=== PATIENT | male | born 1980 | race Caucasian/White ===

== ENCOUNTER → 2017-05-13 16:02 | Outpatient (CLI) | payer MEDICAID, SELFPAY ==
[2017-05-13 19:30] LABS: Free T4 (Free Thyroxine) 0.86 ng/dl (0.76-1.46); Thyroid Stimulating Hormone 1.96 uIU/ml (0.358-3.740)
== END ==
PROVIDERS: Visit Provider Nurse Practitioner Family
DX: R63.5 Abnormal weight gain (principal)
CPT/HCPCS: 84439; 84443

== ENCOUNTER → 2017-05-17 11:04 | Outpatient (POV) | payer MEDICAID, SELFPAY | PROVIDERS: PCP Emergency Medicine; Visit Provider Specialist | DX: G40.909 Epilepsy, unspecified, not intractable, without status epilepticus (principal) | CPT/HCPCS: 95816 ==

== ENCOUNTER → 2017-05-26 12:45 | Outpatient (CLI) | payer MEDICAID, SELFPAY ==
--- NOTE | 2017-05-26 12:46 | MR_ITS ---
MR head/brain wo con HISTORY: Seizure, Transient alteration of awareness ORDERING PHYSICIAN: Arabella Elam MD PATIENT AGE: 36 years COMPARISON: None TECHNIQUE: Standard multiplanar multiecho sequences are performed without contrast. FINDINGS: No midline shift, mass effect, intracranial hemorrhage or hydrocephalus. There is mild degree of motion artifact which somewhat decreases fine detail. No evidence of acute infarction. The cerebellopontine angles are asymmetric with increase CSF signal in the left CP angle possibly related to an arachnoid cyst. Motion artifact does somewhat obscure fine detail in this region. Repeat exam with emphasis on the CP angle within section images without and with contrast may confirm this finding.. The hippocampal gyri are unremarkable in the temporal horns are symmetric. The pituitary gland and optic chiasm are unremarkable. No cerebellar ectopia. No sinus air-fluid level or mastoid effusion. IMPRESSION: 1. Asymmetric prominence of the subarachnoid space in the left CP angle possibly related to an arachnoid cyst. Repeat exam with thin sections without and with contrast and without patient motion may confirm this finding 2. Otherwise negative MRI of the brain
--- NOTE | 2017-05-26 12:46 | FL_ITS ---
FL barium swallow modified: 05/26/2017 12:46 PM CLINICAL HISTORY: Evaluate for aspiration, dysphasia ORDERING PHYSICIAN: Arabella Elam MD PATIENT AGE: 36 years COMPARISON: TECHNIQUE: Patient administered varying consistencies of barium contrast, while viewed in lateral position under real-time fluoroscopy with cine recording. FLUOROSCOPY TIME: 2 minutes and 7 seconds The study was performed in conjunction with speech pathologist. Please see that report & recommendations. FINDINGS: Patient was given varying consistencies of barium. This consisted of thin with cup thin with straw, puree, regular, pudding. No aspiration or penetration. There was good bolus formation. No significant delay or residue. IMPRESSION: Unremarkable modified barium swallow Please see speech pathologist report and recommendations.
--- NOTE | 2017-05-26 14:04 | HMH.SLMBS2 ---
Speech & Language Evaluation Speech/Language Mod Barium Swallow Start: 05/26/17 13:55 Freq: once Status: Complete Protocol: Document 05/26/17 13:56 EBONI (Rec: 05/26/17 14:04 EBONI [id number]) [facility] Recommendations Diet Dietary Recommendations Regular Thin Liquids Treatment/Strategies Strategy/Precaution Recommend Small Bites and Sips Alternate Liquids/Solids Mod Barium Swallow Impressions Summary and Impressions Oral Phase Impression No Impairment (WFL) Oral Phase Summary No impairments noted during evaluation. Pharyngeal Phase Impression No Impairment (WFL) Pharyngeal Phase Summary No impairments noted during evaluation. Speech/Language MBS Assessment/Goals/Plan Assessment Date of Evaluation: 05/26/17 Evaluation Type Initial Certification Assessment/Problems Mother reports Иван has difficulty chewing meats, breads, and lettuce. Does Patient Qualify for Service No Qualify/Failure Comment No clinical signs of dysphagia noted during evaluation. Plan Pt/Guardian verbally ack understanding Yes of dx/prognosis/goals G -code Required No Education Instructions provided Alternate between bite and sip . Take small bites and small sips during meals. Mod Barium Swallow Setup Exam Setup Radiologist Natan Soto Level of Consciousness Awake Follows Commands Position (degrees) 90 Mod Barium Swallow-Lat View Textures Lateral View Food Presentation Thin Liquid via Cup Thin Liquid via Straw Pureed Food- Thin Ground Food- Regular Regular Food Pudding Oral Phase Labial Closure No Impairment (WFL) Bolus Formation Pooling L/R No Impairment (WFL) Bolus Formation under Tongue No Impairment (WFL) Bolus Formation Scattered Loss No Impairment (WFL) Mastication Rotary Chew No Impairment (WFL) Mastication Munching No Impairment (WFL) Mastication Lateralization No Impairment (WFL) A/P Lingual Propulsion Spills No Impairment (WFL) Lingual Movement No Impairment (WFL) Residue Clearing No Impairment (WFL) Aspiration? No Pharyngeal Phase Swallow Response Delay No Impairment (WFL) Base of Tongue No Impairment (WFL) Epiglottic Coverage No Impairment (WFL) Laryngeal Elevation N
== END ==
PROVIDERS: PCP Emergency Medicine; Visit Provider Specialist
DX: R13.10 Dysphagia, unspecified (principal); G40.909 Epilepsy, unspecified, not intractable, without status epilepticus; R40.4 Transient alteration of awareness
CPT/HCPCS: 70371; 70551; 92611

== ENCOUNTER → 2017-08-13 10:32 | Outpatient (CLI) | payer MEDICAID, SELFPAY ==
--- NOTE | 2017-08-13 10:36 | CA_ITS ---
PROCEDURE: 2-D M-mode and color Doppler study INDICATIONS FOR THE TEST: Chest pain COPD Heart Murmur Tobacco Smoking Palpitations Fatigue Syncope Edema Hypertension Diabetes Mellitus Rheumatic Fever SOB WRIGHT Obesity Hyperlipidemia+ Family History HD+ Additional History downs syndrome PATIENT INFORMATION HEIGHT: 60 WEIGHT: 129 GENDER: Male B/P: 109/70 2-D/M-MODE INTERPRETATION: 2-D MEASUREMENTS OBSERVED VALUES IN CMS Right Ventricular Dimension (RVDd) 1.3 Interventricular Septum (Thickness)(IVsd) 0.8 Left Ventricular Internal Dimensions(LVIDd) 4.2 Left Ventricular Posterior Wall (Thickness)(LVPWd) 0.8 Aortic Root 2.7 Aortic Cusp Separation 1.4 Left Atrial Dimensions (LAD) 2.0 2D 1. Left atrium is normal size, left ventricle is normal size, there is no concentric left ventricular hypertrophy, visually estimated ejection fraction 55% with no obvious regional wall motion abnormality. 2. The right atrium and right ventricle are normal size and contractility. 3. The aortic, mitral and tricuspid valve are structurally normal. 4. The pulmonic valve is poorly visualized. 5. No significant pericardial effusion noted. DOPPLER INTERROGATION: Doppler interrogation of the aortic, mitral and tricuspid valvular presence of mild mitral and tricuspid regurgitation, diastolic parameters are within normal range. Tricuspid regurgitant jet velocity is insufficient for calculation of the right ventricular systolic pressure. CONCLUSION: 1. Normal left ventricular size, preserved left ventricular systolic function, visually estimated ejection fraction of 55% with no obvious regional wall motion abnormality, diastolic parameters are within normal range. 2. Mild mitral and tricuspid regurgitation 3. No significant pericardial effusion noted.
== END ==
PROVIDERS: PCP Emergency Medicine; Visit Provider Internal Medicine
DX: R01.1 Cardiac murmur, unspecified (principal); R94.31 Abnormal electrocardiogram [ECG] [EKG]; Z82.49 Family history of ischemic heart disease and other diseases of the circulatory system
CPT/HCPCS: 93306

== ENCOUNTER → 2017-10-14 08:11 | Outpatient (REF) | payer MEDICAID, SELFPAY ==
[2017-10-14 17:36] LABS: Basophils # 0.1 K/mm3 (0-0.2); Basophils % 2.1 % (0.1-2.0); Eosinophils # 0.1 K/mm3 (0.0-0.4); Eosinophils % 1.6 % (0.1-12.0); Hematocrit 50.5 % (42.0-52.0); Hemoglobin 15.8 g/dL (14.1-18.0); Lymphocytes # 1.2 K/mm3 (0.7-4.5); Lymphocytes % 31.9 K/mm3 (10-50); Mean Corpuscular HGB Conc 31.3 g/dL (31.8-35.4); Mean Corpuscular Hemoglobin 29.3 pg (27.0-31.2); Mean Corpuscular Volume 93.6 fl (80-94); Mean Platelet Volume 8.7 fl (7.4-10.4); Monocytes # 0.3 K/mm3 (0.1-1.0); Monocytes % 6.8 % (1.7-9.3); Neutrophils # 2.2 K/mm3 (1.8-7.8); Neutrophils % 57.7 % (37.0-80.0); Platelet Count 253 K/mm3 (142-424); Red Cell Distribution Width 14.2 % (11.5-17.5); White Blood Count 3.8 K/mm3 (4.8-10.8)
[2017-10-14 19:32] LABS: Hemoglobin A1C 5.5 % (0.0-7.0)
[2017-10-14 20:27] LABS: Alanine Aminotransferase 32 U/L (12-78); Albumin Level 3.7 gm/dL (3.4-5.0); Albumin/Globulin Ratio 1.1 (1.1-1.8); Alkaline Phosphatase 78 U/L (46-116); Anion Gap 9.2 mEq/L (5-15); Aspartate Amino Transferase 18 U/L (15-37); Bilirubin,Total 0.4 mg/dL (0.2-1.0); Blood Urea Nitrogen 15 mg/dL (7-18); Calcium 8.6 mg/dL (8.5-10.1); Carbon Dioxide 29 mmol/L (21.0-32.0); Chloride 105 mmol/L (98-107); Chol/HDL Ratio 3.9 (1-3.5); Cholesterol 151 mg/dL (140-200); Creatinine,Serum 1.06 mg/dL (0.70-1.30); Estimated Glomerular Filt Rate 79 ml/min (>60); GFR (African American) 96 ML/MIN (>60); Globulin 3.4 gm/dl (1.3-3.2); Glucose 102 mg/dL (74-106); HDL Cholesterol 39 mg/dL (27-67); LDL Cholesterol 85 mg/dL (0-130); Potassium 4.2 mmoL/L (3.5-5.1); Sodium 139 mmol/L (136-145); T4 (Thyroxine) 4.8 ug/dl (4.7-13.3); Total Protein,Serum 7.1 gm/dL (6.4-8.2); Triglycerides 135 mg/dL (30-200); VLDL Cholesterol 27 mg/dL (0-40)
== END ==
LOC: LAB 08:11
PROVIDERS: Visit Provider Nurse Practitioner Family
DX: R53.83 Other fatigue (principal)
CPT/HCPCS: 80053; 80061; 83036; 84436; 84443; 85025

== ENCOUNTER → 2018-03-04 13:40 | Outpatient (CLI) | payer MEDICAID, SELFPAY | PROVIDERS: Visit Provider Nurse Practitioner Family | DX: J02.9 Acute pharyngitis, unspecified (principal) ==

== ENCOUNTER → 2018-07-05 07:57 | Outpatient (CLI) | payer MEDICAID, SELFPAY ==
[2018-07-05 08:23] LABS: Basophils # 0.1 K/mm3 (0-0.2); Basophils % 1.2 % (0.1-2.0); Eosinophils # 0.1 K/mm3 (0.0-0.4); Eosinophils % 1.2 % (0.1-12.0); Hematocrit 48.2 % (42.0-52.0); Hemoglobin 15.7 g/dL (14.1-18.0); Lymphocytes # 1.3 K/mm3 (0.7-4.5); Lymphocytes % 30.4 % (10-50); Mean Corpuscular HGB Conc 32.7 g/dL (31.8-35.4); Mean Corpuscular Hemoglobin 29.2 pg (27.0-31.2); Mean Corpuscular Volume 89.2 fl (80-94); Mean Platelet Volume 7.1 fl (7.4-10.4); Monocytes # 0.2 K/mm3 (0.1-1.0); Monocytes % 5.5 % (1.7-9.3); Neutrophils # 2.5 K/mm3 (1.8-7.8); Neutrophils % 61.7 % (37.0-80.0); Platelet Count 250 K/mm3 (142-424); Red Cell Distribution Width 14.2 % (11.5-17.5); White Blood Count 4.1 K/mm3 (4.8-10.8)
[2018-07-05 10:23] LABS: Alanine Aminotransferase 36 U/L (12-78); Albumin Level 3.9 gm/dL (3.4-5.0); Albumin/Globulin Ratio 1.1 (1.1-1.8); Alkaline Phosphatase 71 U/L (46-116); Anion Gap 14.4 mEq/L (5-15); Aspartate Amino Transferase 22 U/L (15-37); Bilirubin,Total 0.5 mg/dL (0.2-1.0); Blood Urea Nitrogen 18 mg/dL (7-18); Calcium 8.8 mg/dL (8.5-10.1); Carbon Dioxide 27 mmol/L (21.0-32.0); Chloride 105 mmol/L (98-107); Chol/HDL Ratio 3.7 (1-3.5); Cholesterol 156 mg/dL (140-200); Creatinine,Serum 1.07 mg/dL (0.70-1.30); Estimated Glomerular Filt Rate 78 ml/min (>60); GFR (African American) 94 ML/MIN (>60); Globulin 3.6 gm/dl (1.3-3.2); Glucose 90 mg/dL (74-106); HDL Cholesterol 42 mg/dL (27-67); LDL Cholesterol 93 mg/dL (0-130); Potassium 4.4 mmoL/L (3.5-5.1); Sodium 142 mmol/L (136-145); T4 (Thyroxine) 6.5 ug/dl (4.7-13.3); Thyroid Stimulating Hormone 2.86 uIU/ml (0.358-3.740); Total Protein,Serum 7.5 gm/dL (6.4-8.2); Triglycerides 107 mg/dL (30-200); VLDL Cholesterol 21 mg/dL (0-40)
== END ==
PROVIDERS: Visit Provider Nurse Practitioner Family
DX: E78.5 Hyperlipidemia, unspecified (principal); R53.83 Other fatigue
CPT/HCPCS: 36415; 80053; 80061; 84436; 84443; 85025

== ENCOUNTER → 2019-09-14 07:59 | Outpatient (CLI) | payer MEDICAID, SELFPAY ==
[2019-09-14 08:17] LABS: Basophils # 0.1 K/mm3 (0-0.2); Basophils % 1.3 % (0.1-2.0); Eosinophils % 0.7 % (0.1-12.0); Hemoglobin 16.1 g/dL (14.1-18.0); Lymphocytes # 1.1 K/mm3 (0.7-4.5); Lymphocytes % 27.5 % (10-50); Mean Corpuscular HGB Conc 34.3 g/dL (31.8-35.4); Mean Corpuscular Hemoglobin 31.1 pg (27.0-31.2); Mean Corpuscular Volume 90.8 fl (80-94); Mean Platelet Volume 7.6 fl (7.4-10.4); Monocytes # 0.3 K/mm3 (0.1-1.0); Neutrophils # 2.7 K/mm3 (1.8-7.8); Neutrophils % 64.5 % (37.0-80.0); Platelet Count 242 K/mm3 (142-424); Red Blood Count 5.17 M/mm3 (4.60-6.20); Red Cell Distribution Width 14.1 % (11.5-17.5); White Blood Count 4.1 K/mm3 (4.8-10.8)
--- NOTE | 2019-09-14 08:32 | XR_ITS ---
PROCEDURE: XR ANKLE WT BEARING LT MIN 3V CLINICAL INDICATION: pain Pain and swelling COMPARISON: None. FINDINGS: No fracture or dislocation. No lytic or blastic change. There is normal mineralization. Prominent soft tissue swelling at the lateral malleolar region Other findings:None. IMPRESSION: Soft tissue swelling otherwise negative Dictated by: Natan Soto MD 09/14/2019 17:21 Electronically signed by Natan Soto MD in [place] 09/14/2019 17:21
--- NOTE | 2019-09-14 08:32 | XR_ITS ---
PROCEDURE: XR FOOT WT BEARING LT 3V CLINICAL INDICATION: pain COMPARISON: No exams were available for comparison FINDINGS: No fracture or dislocation. No lytic or blastic change. There is normal mineralization. The joint spaces are well-preserved. No significant degenerative/arthritic changes. No erosive changes evident. Other findings:None. IMPRESSION: No acute findings. Dictated by: Natan Soto MD 09/14/2019 17:25 Electronically signed by Natan Soto MD in [place] 09/14/2019 17:25
--- NOTE | 2019-09-14 08:32 | XR_ITS ---
PROCEDURE: XR ANKLE WT BEARING RT MIN 3V CLINICAL INDICATION: pain Pain and swelling COMPARISON: No exams were available for comparison FINDINGS: No fracture or dislocation. No lytic or blastic change. There is normal mineralization. Moderate soft tissue swelling at the lateral malleolar region. Other findings:None. IMPRESSION: Soft tissue swelling otherwise negative Dictated by: Natan Soto MD 09/14/2019 17:24 Electronically signed by Natan Soto MD in [place] 09/14/2019 17:24
--- NOTE | 2019-09-14 08:32 | XR_ITS ---
PROCEDURE: XR FOOT WT BEARING RT 3V CLINICAL INDICATION: pain Pain and swelling COMPARISON: No exams were available for comparison FINDINGS: No fracture or dislocation. No lytic or blastic change. There is normal mineralization. Mild hallux valgus. Mild soft tissue swelling noted at the medial aspect of the 1st MTP joint. Other findings:None. IMPRESSION: Hallux valgus otherwise negative Dictated by: Natan Soto MD 09/14/2019 17:22 Electronically signed by Natan Soto MD in [place] 09/14/2019 17:22
[2019-09-14 09:32] LABS: Alanine Aminotransferase 26 U/L (12-78); Albumin Level 4.4 g/dl (3.5-5.0); Albumin/Globulin Ratio 1.5 (1.1-1.8); Alkaline Phosphatase 70 U/L (38-126); Anion Gap 11.5 mEq/L (5-15); Aspartate Amino Transferase 37 U/L (17-59); Bilirubin,Total 0.6 mg/dl (0.2-1.3); Blood Urea Nitrogen 21 mg/dl (9-20); Calcium 9.2 mg/dl (8.4-10.2); Carbon Dioxide 32 mmol/L (22.0-30.0); Chloride 100 mmol/L (98-107); Chol/HDL Ratio 3.5 (1-3.5); Cholesterol 152 mg/dl (140-200); Estimated Glomerular Filt Rate 84 ml/min (>60); GFR (African American) 101 ML/MIN (>60); Globulin 2.9 g/dL (1.3-3.2); Glucose 97 mg/dl (74-100); HDL Cholesterol 43 mg/dl (40-60); Potassium 4.5 mmoL/L (3.5-5.1); Sodium 139 mmol/L (136-145); Total Protein,Serum 7.3 g/dl (6.3-8.2); Triglycerides 112 mg/dl (30-150); VLDL Cholesterol 22 mg/dL (0-40)
[2019-09-14 09:43] LABS: Direct LDL Cholesterol 86.68 mg/dL (100-129)
[2019-09-14 09:49] LABS: T4 (Thyroxine) 6.6 ug/dl (5.53-11.0)
[2019-09-14 10:03] LABS: Thyroid Stimulating Hormone 3.39 uIU/mL (0.465-4.68)
== END ==
LOC: LAB 07:59 → RAD 08:25
PROVIDERS: PCP Nurse Practitioner Family; Visit Provider Podiatrist
DX: R60.0 Localized edema (principal); M79.89 Other specified soft tissue disorders; M21.42 Flat foot [pes planus] (acquired), left foot; M21.41 Flat foot [pes planus] (acquired), right foot; M25.572 Pain in left ankle and joints of left foot; M25.571 Pain in right ankle and joints of right foot; G89.29 Other chronic pain
CPT/HCPCS: 36415; 73610; 73630; 80053; 80061; 84436; 84443; 85025

== ENCOUNTER 2019-09-18 10:01 | Emergency (ER) | payer MEDICAID, SELFPAY ==
[2019-09-18 10:04] VITALS: BP 105/72; PULSE 111; RESP 16; TEMP 36.7; O2SAT 99; BMI 29.4
--- NOTE | 2019-09-18 10:29 | XR_ITS ---
PROCEDURE: XR RIBS LT MIN 3V W CXR1V CLINICAL INDICATION: LT RIB PAIN COMPARISON: No exams were available for comparison FINDINGS: Lung gerber, cardiac silhouette, soft tissues, in the bony structures are unremarkable. No rib fractures are demonstrated. IMPRESSION: Negative Dictated by: Marquise Maldonado 09/18/2019 10:59 Electronically signed by Marquise Maldonado in [place] 09/18/2019 10:59
[2019-09-18 10:33] LABS: Microscopic, Urine URINE MICROSCOPIC (MICROSCOPIC)
[2019-09-18 10:34] LABS: Appearance,Urine CLEAR (Clear); Bilirubin,Urine Negative (Negative); Blood, Urine Negative (Negative); Color,Urine YELLOW (Yellow); Glucose,Urine (UA) Negative (Negative); Ketones,Urine Negative (Negative); Leukocyte Esterase,Urine Negative (Negative); Nitrate,Urine Negative (Negative); PH,Urine 6.5 (5.0-8.5); Protein,Urine Negative (Negative); Urobilinogen,Urine 0.2 EU/dl (0.2)
[2019-09-18 10:47] LABS: Squamous Epithelial Cell,Urine Occasional #/hpf (0-5); WBC,Urine Occasional #/hpf (0-3)
[2019-09-18 11:30] VITALS: BP 127/74; PULSE 76; RESP 18; TEMP 36.8; O2SAT 99
--- NOTE | 2019-09-18 11:36 | HMH.EDGENADL ---
ED Disposition Clinical Impression: Costochondritis, acute Disposition: Home, Self-Care Condition on Discharge: Good Instructions: DI for Acute Pain -- Adult Prescriptions: Nabumetone 750 mg PO BID 10 Days #20 tab Transmission Status: Pending to [id number] Referrals: Ninfa Escobedo APRN [Primary Care Provider] - - Critical Care Critical Care Time: No Attestation: On 09/18/19, the high probability of a clinically significant, sudden or life threatening deterioration of the following system(s) required my full and direct attention, intervention and personal management. The time I documented below is in addition to time spent performing reported procedures but includes the following listed in this critical care notation. Medical Decision Making - Medical Records Medical records reviewed: Yes: I reviewed the patient's medical records. - Edmar Inquiry Pt receiving controlled substance: No Vital Signs: 09/18/19 10:04 Temperature 98.1 F Temperature Source Oral Pulse Rate [Right Radial] 111 H Respiratory Rate 16 Blood Pressure [Right Arm] 105/72 L Blood Pressure Mean [Right Arm] 83 Blood Pressure Source [Right Arm] Automatic Cuff Blood Pressure Position [Right Arm] Sitting 02 Sat by Pulse Oximetry 99 Oxygen Delivery Method Room Air - Lab Data Lab results reviewed: Yes: I reviewed the patient's lab results. Lab Results 09/18/19 10:15: Urine Color Yellow, Urine Appearance Clear, Urine pH 6.5, Ur Specific [place] 1.020, Urine Protein Negative, Urine Glucose (UA) Negative, Urine Ketones Negative, Urine Blood Negative, Urine Nitrate Negative, Urine Bilirubin Negative, Urine Urobilinogen 0.2, Ur Leukocyte Esterase Negative, Urine RBC 3-5, Urine WBC Occasional, Ur Squamous Epith Cells Occasional, Urine Bacteria None - Radiology Data #1 Image(s): Chest Preliminary Findings: Normal/NAD General Adult HPI - General Chief complaint: PAIN Stated complaint: left rib cage Time Seen by Provider: 09/18/19 11:30 Mode of Arrival: Ambulatory Source of Information: Patient, Parent(s) Limitations: COGNITIVELY DELAYED Description of Symptoms (Recalled from ER Triage Doc. by RN): PT C/O LT RIB/SIDE PAIN. MOM STATES THAT HE HAS A CAMPING CHAIR THAT HE SITS IN IN HIS ROOM TO PLAY VIDEO GAMES SO SHE IS UNSURE IF IT IS RELATED TO LEANING ON THE ARM OF IT OR IF IT IS MORE IN THE FLANK REGION. - History of Present Illness Onset (ago): day(s) Location: chest Radiation: non-radiation Severity: moderate Severity scale (1-10): 4 Quality: aching Consistency: constant Relieving factors: none Exacerbating factors: none Associated symptoms: denies other symptoms Treatments prior to arrival: cold therapy (Rib pain on the right side) - Related Data Previous Rx's Medication Instructions Recorded CLEARLAX POW See Rx Instructions .ROUTE 12/23/18 .COMPLEX #238 unspecified albuterol sulfate 90 mcg/actuation 2 inh INHALATION Q6H #1 each 01/24/19 breath activated powder inhaler levothyroxine 25 mcg tablet 25 mcg PO DAILY #90 tab 08/17/19 cris[place]ole 2 % topical ointment 1 applic TOPICAL BID #60 g 08/31/19 Nabumetone 750 mg PO BID 10 Days #20 tab 09/18/19 Allergies Allergy/AdvReac Type Severity Reaction Status Date / Time NO KNOWN ALLERGIES - NKA Allergy Mild Uncoded 08/31/19 13:00 [facility] History - Hepatitis A Screen Drug use history?: No High risk sexual behaviors?: No History of sexually transmitted infection?: No Currently employed?: No Childcare worker?: No Do you have indoor plumbing?: Yes Do you have electricity?: Yes Attestation statement:: This patient has been screened for Hepatitis A risk factors. Medical History: Reports:: Heart Murmur, Hyperlipidemia, Seizures Denies:: Diabetes Mellitus Type 1, Diabetes Mellitus Type 2 Other Medical History: Reports: Thyroid Disease Comment: Down Syndrome, hearing loss Laterality Cases: Bilateral: Myringotomy (Ear Tubes) Other Surgeries:
== END 2019-09-18 11:30 | disposition home or self-care (01) ==
PROVIDERS: Emergency Provider Family Medicine; PCP Nurse Practitioner Family
DX: M94.0 Chondrocostal junction syndrome [Tietze] (principal); R01.1 Cardiac murmur, unspecified; G40.909 Epilepsy, unspecified, not intractable, without status epilepticus; E78.5 Hyperlipidemia, unspecified; E03.9 Hypothyroidism, unspecified; Z79.899 Other long term (current) drug therapy
CPT/HCPCS: 71101; 81001; 99282

== ENCOUNTER → 2019-09-27 14:09 | Outpatient (CLI) | payer MEDICAID, SELFPAY ==
--- NOTE | 2019-09-27 14:10 | US_ITS ---
PROCEDURE: US EXTREMITY LT LIMITED CLINICAL INDICATION: soft tissue mass evaluation COMPARISON: No exams were available for comparison FINDINGS: There is a heterogeneous area of echogenicity in the left ankle in the subcutaneous region measuring 3 x 0.3 cm. No other significant anomalies evident. IMPRESSION: Ill-defined area of fluid in the lateral left ankle in the subcutaneous tissues Dictated by: Natan Soto MD 09/27/2019 16:31 Electronically signed by Natan Soto MD in [place] 09/27/2019 16:31
--- NOTE | 2019-09-27 14:10 | US_ITS ---
PROCEDURE: US EXTREMITY RT LIMITED CLINICAL INDICATION: soft tissue mass evaluation COMPARISON: No exams were available for comparison FINDINGS: There is a heterogeneous area of slight decreased echogenicity overlying the lateral malleolar region which is nondescript with slight decreased echogenicity. This does not appear to represent a cystic collection. Etiology is indeterminate. This area measures 2.6 by 0.6 cm IMPRESSION: Nonspecific heterogeneous area of decreased echogenicity in the right lateral ankle etiology indeterminate. This does not represent a cystic collection Dictated by: Natan Soto MD 09/27/2019 17:10 Electronically signed by Natan Soto MD in [place] 09/27/2019 17:10
== END ==
PROVIDERS: PCP Nurse Practitioner Family; Visit Provider Podiatrist
DX: M79.89 Other specified soft tissue disorders (principal)
CPT/HCPCS: 76882

== ENCOUNTER → 2020-06-12 08:29 | Outpatient (CLI) | payer MEDICAID, SELFPAY ==
--- NOTE | 2020-06-12 08:29 | MR_ITS ---
PROCEDURE: MR ANKLE LT WO/W CON CLINICAL INDICATION: soft tissue mass Mass on lateral aspect of ankle. Mass has gotten bigger [id number]. COMPARISON: CR XR ANKLE WT BEARING LT MIN 3V from 09/14/2019 TECHNIQUE: Routine multiplanar multi echo sequences are performed without gadolinium enhancement. FINDINGS: 7 x 5 cm soft tissue mass is present along the lateral aspect of the ankle measuring 1.7 cm in thickness. Mass is isointense on T1 and hyperintense on T2. Subcutaneous vessels are traversing through the mass. This mass demonstrates peripheral contrast enhancement. There may be an internal septation within the lesion. This does not surround any tendons. Differential diagnosis would include large ganglion cyst with inflammatory change or abscess. Neoplasm is not excluded. No ligamentous or tendinous abnormalities are apparent. Increased T2 signal involves the shaft of the 1st metatarsal distally and may be due to artifact. There is some edema noted in the sinus tarsi. Edematous changes are also present within the distal soleus muscle which could be due to muscle strain or tear or myositis.. IMPRESSION: 7 x 5 cm soft tissue mass is present along the lateral aspect of the ankle measuring 1.7 cm in thickness. Mass is isointense on T1 and hyperintense on T2. Subcutaneous vessels are traversing through the mass. This mass demonstrates peripheral contrast enhancement. There may be an internal septation within the lesion. This does not surround any tendons. Differential diagnosis would include large ganglion cyst with inflammatory change or abscess. Neoplasm is not excluded. [facility] report was also rendered and available for review. Edema within the distal soleus muscle. Small ankle joint effusion Dictated by: Natan Soto MD 06/18/2020 09:41 Natan Soto MD in [place] 06/18/2020 09:41
== END ==
PROVIDERS: PCP Nurse Practitioner Family; Visit Provider Podiatrist
DX: M25.572 Pain in left ankle and joints of left foot (principal); M79.89 Other specified soft tissue disorders
CPT/HCPCS: 73723; A9576

== ENCOUNTER → 2020-06-14 08:44 | Outpatient (CLI) | payer MEDICAID, SELFPAY ==
--- NOTE | 2020-06-14 08:44 | MR_ITS ---
PROCEDURE: MR ANKLE RT WO/W CON CLINICAL INDICATION: soft tissue mass Pt has bilateral lateral ankle soft tissue masses. Both ankles scanned-left on 06/12 and rt today. The rt ankle mass has been there awhile but has gotten larger over the last month, but not nearly as prominent as the mass on the left ankle. COMPARISON: No exams were available for comparison TECHNIQUE: Routine multiplanar multi echo sequences are performed without gadolinium enhancement. FINDINGS: The ATFL, PT FL, deltoid ligament, and calcaneal fibular ligament appear intact. The posterior tibialis, flexor digitorum longus tendons have an unremarkable appearance. The peroneal tendons, Achilles tendon and anterior extensor tendons have an unremarkable appearance. Small amount fluid surrounds the peroneal tendons. Fluid is present along the posterior talocalcaneal region and posterior to the tibial talar area. Small amount fluid is present anterior to the ankle joint. Small amount fluid is noted within the posterior tibialis tendon sheath. There is enhancement with mild subcutaneous soft tissue swelling adjacent to the lateral malleolus. Small ulceration is present adjacent to the lateral malleolus. Small cystic lesions are present in the distal fibula. Hypointensity is noted in the soft tissue on all sequences in the lateral malleolar region may be due to fibrotic change. In the soft tissues of the medial hindfoot there is a 9 x 8 x 6 mm STIR hyperintense lesion demonstrating some minimal peripheral contrast enhancement and may be due to small complex cyst or necrotic lesion. IMPRESSION: 1. Small ulceration adjacent to the lateral malleolus with associated soft tissue swelling and hypointensity of the soft tissues in this area on all sequences extending anteriorly which may be due to fibrotic changes 2. 9 x 8 x 6 mm STIR hyperintense lesion within the medial hindfoot in the subcutaneous tissues showing some minimal enhancement and could be due to small complex cyst or necrotic lesion or abscess. 3. Small amount of fluid posterior to the ankle joint and talocalcaneal area with some fluid within the soft tissues at this region as well. Dictated by: Natan Soto MD 06/18/2020 09:53 Natan Soto MD in [place] 06/18/2020 09:53
== END ==
PROVIDERS: PCP Nurse Practitioner Family; Visit Provider Podiatrist
DX: M25.571 Pain in right ankle and joints of right foot (principal); M25.572 Pain in left ankle and joints of left foot; M79.89 Other specified soft tissue disorders
CPT/HCPCS: 73723; A9576

== ENCOUNTER → 2020-08-05 07:43 | Outpatient (CLI) | payer MEDICAID, SELFPAY ==
--- NOTE | 2020-08-05 08:03 | ECG_ITS ---
APPROVED REPORT Exam: Resting ECG HR:80 bpm ECG Measurements Heart Rate 80 AXES MD 124 P 44 QRSd 84 QRS 118 QT 358 T 76 QTc 412 Conclusion Normal sinus rhythm Right axis deviation Right ventricular hypertrophy Abnormal ECG Electronically signed by : Carlos Lamas, 08/05/2020 18:13:22
[2020-08-05 08:26] LABS: Basophils # 0.1 K/mm3 (0-0.2); Basophils % 1.5 % (0.1-2.0); Eosinophils % 0.8 % (0.1-12.0); Hematocrit 48.6 % (42.0-52.0); Hemoglobin 15.6 g/dL (14.1-18.0); Lymphocytes # 1.7 K/mm3 (0.7-4.5); Lymphocytes % 31.7 % (10-50); Mean Corpuscular Hemoglobin 28.7 pg (27.0-31.2); Mean Corpuscular Volume 89.5 fl (80-94); Mean Platelet Volume 7.8 fl (7.4-10.4); Monocytes # 0.3 K/mm3 (0.1-1.0); Monocytes % 6.1 % (1.7-9.3); Neutrophils # 3.1 K/mm3 (1.8-7.8); Neutrophils % 59.9 % (37.0-80.0); Platelet Count 274 K/mm3 (142-424); Red Blood Count 5.43 M/mm3 (4.60-6.20); Red Cell Distribution Width 14.3 % (11.5-17.5); White Blood Count 5.2 K/mm3 (4.8-10.8)
[2020-08-05 09:02] LABS: Alanine Aminotransferase 23 U/L (12-78); Albumin Level 4.2 g/dl (3.5-5.0); Albumin/Globulin Ratio 1.4 (1.1-1.8); Alkaline Phosphatase 69 U/L (38-126); Anion Gap 9.3 mEq/L (5-15); Aspartate Amino Transferase 29 U/L (17-59); Bilirubin,Total 0.8 mg/dl (0.2-1.3); Blood Urea Nitrogen 18 mg/dl (9-20); Calcium 9.2 mg/dl (8.4-10.2); Carbon Dioxide 30 mmol/L (22.0-30.0); Chloride 105 mmol/L (98-107); Estimated Glomerular Filt Rate 83 ml/min (>60); GFR (African American) 101 ML/MIN (>60); Globulin 2.9 g/dL (1.3-3.2); Glucose 97 mg/dl (74-100); Potassium 4.3 mmoL/L (3.5-5.1); Sodium 140 mmol/L (136-145); Total Protein,Serum 7.1 g/dl (6.3-8.2)
== END ==
PROVIDERS: Visit Provider Podiatrist
DX: Z01.818 Encounter for other preprocedural examination (principal); Z11.52 Encounter for screening for COVID-19; M79.89 Other specified soft tissue disorders
CPT/HCPCS: 36415; 80053; 85025; 93005; U0003

== ENCOUNTER 2020-08-07 06:07 | Day surgery (SDC) | payer MEDICAID, SELFPAY ==
[2020-07-31 13:50] VITALS: BMI 26.4
[2020-08-07] VITALS (10 sets, daily range): BP systolic 112–143; BP diastolic 68–90; PULSE 88–106; RESP 16–20; TEMP 36.2–36.8; O2SAT 96–100
--- NOTE | 2020-08-07 07:41 | P.PN_ITS ---
[facility] Anesthesia Checklist - Patient Identification Patient Identification: Arm Band, Family - Structural Data Admitted From: Home Planned Operative Procedure/s: Excision soft tissue mass L ankle Consent for Planned Operative Procedure(s) Verified: Yes - NPO Status Verified Time NPO: 00:00 - Additional verifications Anesthesia Reactions: Yes (drowsiness) Hx Blood Transfusions: No Blood Transfusion Reaction: No - Airway Assessment C-Spine Mobility Assessed: Yes TMJ Mobility Assessed: Yes Dentition: Poor Dentition (Missing) - Neurological Assessment Level of Consciousness: Awake Hx Seizures: No Numbness or tingling in extremities: No - Anesthesia Plan Anesthesia Risk discussed: Yes Anesthesia Plan: Verified (Verified with mother) Anesthesia Type: General w/block [facility] History I have reviewed the patient's past medical history: Yes Medical History: Reports:: Heart Murmur, Hiatal Hernia, Hyperlipidemia, Seizures Denies:: Cancer, Diabetes Mellitus Type 1, Diabetes Mellitus Type 2, Internal Pacemaker, MRSA *Have you ever received a pneumonia vaccine?: No *Have you received a flu vaccine this season?: Yes Other Medical History: Reports: Hypothyroidism, Thyroid Disease. Denies: Blood Transfusion Reaction Anesthesia experience/problems:: None Laterality Cases: Bilateral: Myringotomy (Ear Tubes) Other Surgeries: Yes: Hernia Repair, Other. No: Pacemaker Amputation: No Fractures: No - *Social History Smoking Status: Never smoker Alcohol Intake: never Alcohol Intake Frequency:: other Substance Use Type: denies use *Occupational Status:: disabled Housing: house Household Members: family *Travel in the last 8 weeks: None Family Hx:: No significant family history
--- NOTE | 2020-08-07 09:57 | P.PN_ITS ---
[facility] Anesthesia Record Part I Intake, IV Amount: 900 Estimated blood loss (mL): 30 Urine output (mL): 0 Blood Pressure: 120/85 SaO2: 98 Pulse Rate: 90 Respiratory Rate: 19 Temperature: 97.6 F Patient is:: Drowsy Stable to PACU at:: 09:55
--- NOTE | 2020-08-07 11:05 | HMH.OPNOTE ---
Date of procedure: 08/07/20 Pre-op Diagnosis:: 1. Left ankle soft tissue mass 2. Left ankle synovitis Post-op Diagnosis:: Same Procedure performed:: 1. Left ankle soft tissue mass excision 2. Left ankle synovectomy 3. Left application of graft 4. Left application of YOSI drain Surgeon:: Sherri Nuñez DPM MANAGER TRANSIT:: Other (Jessica Shipley) Anesthesia: GETA, regional (left popliteal nerve block) Estimated blood loss (mL): 30 Clinical Note:: Patient is a 40-year-old male with Down syndrome who presents for MRI follow-up of bilateral ankle soft tissue masses and surgical planning. 06/12/20 PROCEDURE: MR ANKLE LT WO/W CON. CLINICAL INDICATION: soft tissue mass. Mass on lateral aspect of ankle. Mass has gotten bigger x1 month. COMPARISON: CR XR ANKLE WT BEARING LT MIN 3V from 09/14/2019. TECHNIQUE: Routine multiplanar multi echo sequences are performed without gadolinium. FINDINGS: 7 x 5 cm soft tissue mass is present along the lateral aspect of the ankle measuring 1.7 cm in thickness. Mass is isointense on T1 and hyperintense on T2. Subcutaneous vessels are traversing through the mass. This mass demonstrates peripheral contrast enhancement. There may be an internal septation within the lesion. This does not surround any tendons. Differential diagnosis would include large ganglion cyst with inflammatory change or abscess. Neoplasm is not excluded. No ligamentous or tendinous abnormalities are apparent. Increased T2 signal involves the shaft of the 1st metatarsal distally and may be due to artifact. There is some edema noted in the sinus tarsi. Edematous changes are also present within the distal soleus muscle which could be due to muscle strain or tear or myositis. IMPRESSION: 7 x 5 cm soft tissue mass is present along the lateral aspect of the ankle measuring 1.7 cm in thickness. Mass is isointense on T1 and hyperintense on T2. Subcutaneous vessels are traversing through the mass. This mass demonstrates peripheral contrast enhancement. There may be an internal septation within the lesion. This does not surround any tendons. Differential diagnosis would include large ganglion cyst with inflammatory change or abscess. Neoplasm is not excluded. [facility] report was also rendered and available for review. Edema within the distal soleus muscle. Small ankle joint effusion. We discussed conservative or surgical intervention. He has failed conservative care. Symptoms are unchanged. Patient has tried modification of shoe gear, modification of activity, RICE protocol, elevation, compression and NSAIDs. Indications: negative x-rays left foot/ankle as above. Indications: Soft tissue mass present over 10 years on right with worsening callus formation, fast growing left ankle mass with fluctuance, increased pain and swelling, limiting shoe gear and activity. The mother states he will not likely tolerate an in office procedure. All risks and benefits were discussed including but not limited to: recurrence of the mass, damage to blood vessels and nerves, bleeding, infection, wound complications, need for further surgery, prolonged swelling of the extremity, prolonged pain, RSD/CRPS, DVT, and anesthetic complications. No guarantees were given. All questions fully answered. The patient verbalized understanding and agreed to proceed with surgery. Consent was obtained. Necessary labs and pre-op testing ordered. Discussed plan of care with cardiology. Paul Daly will f/u in December 2020, no further cardiac testing warranted. PCP Kaci Escobedo 08/01/20, medical clearance. Operative findings:: Left ankle has a firm but fluctuant nodule soft tissue mass over the distal fibula. Immediately dissection through skin over the central portion of the mass there was blisterlike serous fluid expressed. Wound culture taken. Minimal subcutaneous tissue noted. Synovitis and scar tissue noted just under the skin full-thickness and what should have been normal subcutaneous tissue and extended to/including deep fas
--- NOTE | 2020-08-07 12:27 | HMH.ANESII ---
[facility] Anesthesia Record Part II Discharge Time: 10:25 Destination: Surgical Day Care (OP Surgery) PACU nurse assessment reviewed?: Yes Patient Condition:: Good Anesthesia Complications:: None Swallowing reflex intact?: Yes Cyanosis?: No Blood Pressure: 133/75 Pulse Rate: 93 Temperature: 97.5 F Mental Status: Alert & Oriented Pain level:: 0 Nausea and/or vomitting:: None Intake, IV Amount: 0
== END 2020-08-07 11:12 | disposition home or self-care (01) ==
PROVIDERS: PCP Nurse Practitioner Family; Visit Provider Podiatrist
PROC: (CPT 27625; principal; 2020-08-07 07:30)
DX: M79.89 Other specified soft tissue disorders (principal); M25.572 Pain in left ankle and joints of left foot; Q90.9 Down syndrome, unspecified; M65.872 Other synovitis and tenosynovitis, left ankle and foot; D49.2 Neoplasm of unspecified behavior of bone, soft tissue, and skin
CPT/HCPCS: 27625; 15275; 27614; 87070; 87075; 87205; 96374; Q4211

== ENCOUNTER → 2020-09-12 11:49 | Outpatient (CLI) | payer MEDICAID, SELFPAY ==
[2020-09-12 12:07] LABS: Basophils # 0.1 K/mm3 (0-0.2); Basophils % 1.3 % (0.1-2.0); Eosinophils % 0.6 % (0.1-12.0); Hematocrit 46.7 % (42.0-52.0); Hemoglobin 14.4 g/dL (14.1-18.0); Lymphocytes # 1.4 K/mm3 (0.7-4.5); Mean Corpuscular HGB Conc 30.8 g/dL (31.8-35.4); Mean Corpuscular Hemoglobin 28.6 pg (27.0-31.2); Mean Corpuscular Volume 92.8 fl (80-94); Mean Platelet Volume 7.5 fl (7.4-10.4); Monocytes # 0.3 K/mm3 (0.1-1.0); Monocytes % 5.3 % (1.7-9.3); Neutrophils # 3.2 K/mm3 (1.8-7.8); Neutrophils % 63.8 % (37.0-80.0); Platelet Count 255 K/mm3 (142-424); Red Blood Count 5.03 M/mm3 (4.60-6.20); Red Cell Distribution Width 13.8 % (11.5-17.5)
[2020-09-12 12:53] LABS: Alanine Aminotransferase 21 U/L (12-78); Albumin Level 4.2 g/dl (3.5-5.0); Albumin/Globulin Ratio 1.4 (1.1-1.8); Alkaline Phosphatase 75 U/L (38-126); Anion Gap 10.1 mEq/L (5-15); Aspartate Amino Transferase 26 U/L (17-59); Bilirubin,Total 0.6 mg/dl (0.2-1.3); Blood Urea Nitrogen 13 mg/dl (9-20); Calcium 8.8 mg/dl (8.4-10.2); Carbon Dioxide 28 mmol/L (22.0-30.0); Chloride 105 mmol/L (98-107); Estimated Glomerular Filt Rate 94 ml/min (>60); GFR (African American) 114 ML/MIN (>60); Globulin 3.1 g/dL (1.3-3.2); Glucose 87 mg/dl (74-100); Potassium 4.1 mmoL/L (3.5-5.1); Sodium 139 mmol/L (136-145); Total Protein,Serum 7.3 g/dl (6.3-8.2)
[2020-09-12 13:00] LABS: C-Reactive Protein 6.6 mg/L (0-4)
[2020-09-12 16:58] LABS: Erythrocyte Sedimentation Rate 23 mm/hr (0-15)
== END ==
PROVIDERS: Visit Provider Podiatrist
DX: T81.31XD Disruption of external operation (surgical) wound, not elsewhere classified, subsequent encounter (principal)
CPT/HCPCS: 36415; 80053; 85025; 85651; 86140; 87070; 87205

== ENCOUNTER 2021-07-18 16:06 | Emergency (ER) | payer MEDICAID, SELFPAY ==
[2021-07-18 17:06] VITALS: BP 105/72; PULSE 126; RESP 16; TEMP 37.1; O2SAT 98; BMI 43.6
--- NOTE | 2021-07-18 18:22 | HMH.EDUTC ---
[facility] Disposition Clinical Impression: Nausea & vomiting Qualifiers: Vomiting type: unspecified Qualified Code(s): R11.2 - Nausea with vomiting, unspecified Disposition: Home, Self-Care Condition on Discharge: Good Instructions: Nausea and Vomiting-Adult, Ondansetron Additional Instructions: Drink extra fluids with and between meals. If you have difficulty drinking, try very small amounts of water or suck on ice chips. ? Avoid fruit juices, as these do not replace minerals and can actually increase diarrhea. ? Children and adults can use sports drinks to replenish electrolytes. Younger children and infants should use products formulated for children, like oral rehydration solutions. ? Eat food in small amounts and let your stomach recover. ? Get lots of rest. You may feel tired or weak. ? No greasy or fried foods for the next 24-48 hours BRAT diet Bananas Rice Apples and [place] ? Make sure to drink plenty of liquids ? Return if needed ? Straight to ER if any life threatening symptoms ? Zofran as prescribed ? Follow up with family doctor in the next 48-72 hours if no improvement or any worsening of symptoms Prescriptions: Ondansetron [Zofran 4mg ODT] 4 mg PO TIDP PRN #20 tab PRN Reason: Vomiting Transmission Status: Received by [id number] Referrals: Ninfa Escobedo APRN [Primary Care Provider] - As needed Time of Disposition: 18:32 Medical Decision Making - Edmar Inquiry Pt receiving controlled substance: No Edmar was queried for this patient: No Vital Signs: 07/18/21 17:06 Temperature 98.7 F Temperature Source Oral Pulse Rate [Left] 126 H Respiratory Rate 16 Blood Pressure [Right Arm] 105/72 L Blood Pressure Mean [Right Arm] 83 02 Sat by Pulse Oximetry 98 - Lab Data Lab results reviewed: Yes: I reviewed the patient's lab results. Orders (Tests/Meds): ED MEDICATIONS Discontinued Medications Generic Name Dose Route Start Last Admin Trade Name Freq PRN Reason Stop Dose Admin Ondansetron HCl 4 mg 07/18/21 17:08 07/18/21 17:13 Ondansetron 4mg/2ml Vial IM 07/18/21 17:09 4 mg ONCE ONE Administration [facility] HPI - General Stated complaint: fever, vomiting Time Seen by Provider: 07/18/21 18:00 Mode of Arrival: Ambulatory Source of Information: Patient Limitations: No Limitations Description of Symptoms (Recalled from Triage Doc. by RN): pt c/o n/v since 0100 this am. HEENT Symptoms (Recalled from RN notes): No Resp Symptoms (Recalled from RN notes): No Skin Symptoms (Recalled from RN notes): No MS Symptoms (Recalled from RN notes): No Functional Status (Recalled from RN notes): wnl - History of Present Illness Provider Complaint: Caregiver states that he started vomiting around 1am and has vomited a couple of times but has been having some dry heaves State that this evening he was still complaining of feeling sick and having nausea so they brought him in States that also he said it hurt this morning when he would urinate but only complained of that once - Related Data Previous Rx's Medication Instructions Recorded crisaborole 2 % topical ointment 1 applic TOPICAL BID 90 Days #100 g 05/27/20 ondansetron 4 mg disintegrating 4 mg PO Q6H #30 tab 07/29/20 tablet polyethylene glycol 3350 17 17 g PO DAILY #238 g 09/19/20 gram/dose oral powder levothyroxine 25 mcg tablet See Rx Instructions .ROUTE 11/12/20 .COMPLEX #90 tab amoxicillin 400 mg/5 mL oral 800 mg PO BID #200 ml 06/02/21 suspension prednisolone sodium phosphate 5 mg 10 mg PO BID #100 ml 06/02/21 base/5 mL (6.7 mg/5 mL) oral soln Ondansetron [Zofran 4mg ODT] 4 mg PO TIDP PRN #20 tab 07/18/21 Allergies Allergy/AdvReac Type Severity Reaction Status Date / Time No Known Allergies Allergy Verified 06/02/21 14:02 - Worker's Comp Is this a Worker's Comp case?: No [facility] History - Hepatitis A Screen Drug use history?: No High risk sexual behaviors?: No History of sexually transmitte
[2021-07-18 18:34] VITALS: BP 105/72; PULSE 100; RESP 16; TEMP 37.1
== END 2021-07-18 18:35 | disposition home or self-care (01) ==
PROVIDERS: Emergency Provider Nurse Practitioner; PCP Nurse Practitioner Family
DX: R11.2 Nausea with vomiting, unspecified (principal); R50.9 Fever, unspecified
CPT/HCPCS: 96372; 99212; G0463; J2405

== ENCOUNTER → 2022-01-21 10:58 | Outpatient (CLI) | payer MEDICAID, SELFPAY ==
[2022-01-21 12:05] LABS: Basophils # 0.1 K/mm3 (0-0.2); Basophils % 1.1 % (0.1-2.0); Eosinophils % 0.6 % (0.1-12.0); Hematocrit 48.4 % (42.0-52.0); Hemoglobin 15.6 g/dL (14.1-18.0); Lymphocytes # 1.2 K/mm3 (0.7-4.5); Lymphocytes % 21.9 % (10-50); Mean Corpuscular HGB Conc 32.3 g/dL (31.8-35.4); Mean Corpuscular Hemoglobin 29.5 pg (27.0-31.2); Mean Corpuscular Volume 91.4 fl (80-94); Mean Platelet Volume 7.7 fl (7.4-10.4); Monocytes # 0.3 K/mm3 (0.1-1.0); Monocytes % 4.9 % (1.7-9.3); Neutrophils # 3.8 K/mm3 (1.8-7.8); Neutrophils % 71.5 % (37.0-80.0); Platelet Count 290 K/mm3 (142-424); Red Cell Distribution Width 14.1 % (11.5-17.5); White Blood Count 5.3 K/mm3 (4.8-10.8)
[2022-01-21 13:17] LABS: Chloride 99 mmol/L (98-107)
[2022-01-21 13:18] LABS: Potassium 4.5 mmoL/L (3.5-5.1); Sodium 140 mmol/L (136-145)
[2022-01-21 13:20] LABS: Bilirubin,Unconjugated 0.2 mg/dL (0.0-1.1); Blood Urea Nitrogen 16 mg/dl (9-20); Estimated Glomerular Filt Rate 93 ml/min (>60); Free T4 (Free Thyroxine) 0.75 ng/dl (0.78-2.19); GFR (African American) 113 ML/MIN (>60)
[2022-01-21 13:21] LABS: Alanine Aminotransferase 23 U/L (12-78); Albumin Level 4.1 g/dl (3.5-5.0); Alkaline Phosphatase 91 U/L (38-126); Anion Gap 14.5 mEq/L (5-15); Aspartate Amino Transferase 34 U/L (17-59); Bilirubin,Direct 0.1 mg/dl (0.0-0.4); Bilirubin,Indirect 0.3 mg/dL (0.0-0.9); Bilirubin,Total 0.4 mg/dl (0.2-1.3); Calcium 8.7 mg/dl (8.4-10.2); Carbon Dioxide 31 mmol/L (22.0-30.0); Chol/HDL Ratio 4.3 (1-3.5); Cholesterol 170 mg/dl (140-200); Glucose 87 mg/dl (74-100); HDL Cholesterol 40 mg/dl (40-60); Magnesium 1.9 mg/dl (1.6-2.3); Total Protein,Serum 7.2 g/dl (6.3-8.2); Triglycerides 139 mg/dl (30-150); VLDL Cholesterol 28 mg/dL (0-40)
[2022-01-21 13:52] LABS: Thyroid Stimulating Hormone 2.47 uIU/mL (0.465-4.68)
== END ==
PROVIDERS: PCP Nurse Practitioner Family; Visit Provider Nurse Practitioner
DX: R01.1 Cardiac murmur, unspecified (principal); I34.0 Nonrheumatic mitral (valve) insufficiency; E78.2 Mixed hyperlipidemia; Q90.9 Down syndrome, unspecified; R94.31 Abnormal electrocardiogram [ECG] [EKG]; Z82.49 Family history of ischemic heart disease and other diseases of the circulatory system
CPT/HCPCS: 36415; 80048; 80061; 80076; 83735; 84439; 84443; 85025

== ENCOUNTER → 2022-01-27 07:46 | Outpatient (CLI) | payer MEDICAID, SELFPAY ==
--- NOTE | 2022-01-27 07:51 | CA_ITS ---
APPROVED REPORT EXAM: Comprehensive 2D, Doppler, and color-flow Echocardiogram Cancer Program Director: Lyly Boggs CRT Ht: 5 ft 0 in Wt: 143lbs BSA: 1.62 BP: 110/75 mmHg Indications: Down syndrome, Abnormal ECG, Murmur, Hyperlipidemia 2D Dimensions LVOT 1.68 cm (M/F) 1.5-2.5 LA Volume 20.40 mL LA Volume Index 12.30 mL/m2 (M/F) 16-34 M-Mode Dimensions RVDd 1.37 cm (0.9-2.6) LA Diam 1.95 cm (1.9-4.0) LVDd 4.22 cm (3.5-5.7) Ao Diam 4.21 cm (2.0-3.7) LVDs 2.35 cm (3.5-5.7) IVSd 1.45 cm (0.6-1.1) PWd 0.88 cm (0.6-1.1) EF (Teich) 76.00% FS 44.30% EDV (Teich) 79.50 mL TAPSE 1.72 (<1.7) ESV (Teich) 19.10 mL LV Diastology E Decel Time 153.00 (160-240 msec) E/A Ratio 0.80 MED E' 11.30 (< 7 cm/sec) MED A' 8.90 cm/s E'/MED E' Ratio 4.16 (>14) LAT E' 10.50 (<10 cm/sec) LAT A' 8.10 cm/s E/LAT E' Ratio 4.48 (>14) Aortic Valve AO Peak GR. 4.30 mmHg Mitral Valve MV E Max Rk. 47.00 (40-130 cm/s) MV A Velocity 59.00 (40-130 cm/s) E/A Ratio 0.80 MV Decel. Time 153.00 (160-240 ms) MV PHT 45.00 ms Pulmonary Valve PV Peak Velocity 152.00 (50-150 cm/s) Tricuspid Valve TR P. Velocity 268.00 cm/s RAP Estimate 10.00 mmHg RVSP 38.70 mmHg Left Ventricle Left atrium is normal size, left ventricle is normal size, there is no concentric left ventricular hypertrophy, estimated ejection fraction 55% with no regional wall motion abnormality. Diastolic parameters are within normal range. Right Ventricle Right atrium and right ventricle are normal size and contractility. Aortic Valve Aortic valve is minimally thickened and fibrosed there is no aortic stenosis or aortic insufficiency. Mitral Valve Mitral valve grossly normal, there is trace mitral regurgitation. Tricuspid Valve Tricuspid valve grossly normal, there is trace tricuspid regurgitation, tricuspid regurgitation jet velocity is inadequate for calculation of the right ventricular systolic pressure. Pulmonic Valve Pulmonic valve is minimally fibrosed, there is no pulmonic stenosis, there is mild pulmonic insufficiency. Great Vessels Aortic root is normal size. Inferior vena cava is normal size with normal inspiratory collapse. Pericardium No significant pericardial effusion noted. Conclusion 1. Normal left ventricular size, preserved left ventricular systolic function, estimated ejection fraction 55% with no regional wall motion abnormality, diastolic parameters are within normal range. 2. Trace mitral and tricuspid regurgitation. 3. There is no pulmonic stenosis, there is mild pulmonic insufficiency. 4. No significant pericardial effusion noted. 5. Inferior vena cava is normal size with normal inspiratory collapse. Electronically signed by : Marty Barbosa MD 01/28/2022 06:48:21
== END ==
PROVIDERS: PCP Nurse Practitioner Family; Visit Provider Nurse Practitioner
DX: R01.1 Cardiac murmur, unspecified (principal); I34.0 Nonrheumatic mitral (valve) insufficiency; E78.2 Mixed hyperlipidemia; Q90.9 Down syndrome, unspecified; R94.31 Abnormal electrocardiogram [ECG] [EKG]; Z82.49 Family history of ischemic heart disease and other diseases of the circulatory system
CPT/HCPCS: 93306

== ENCOUNTER 2022-02-04 13:01 | Emergency (ER) | payer MEDICAID, SELFPAY ==
--- NOTE | 2022-02-04 14:29 | EXP.UTC ---
Discharge Plan Disposition Patient Disposition: Home, Self-Care Condition: Good Prescriptions Prescriptions: New ondansetron 4 mg Tablet,Disintegrating 4 mg PO Q8H PRN (Reason: Nausea) Qty: 12 0RF benzonatate [benzonatate] 100 mg capsule 100 mg PO TIDP PRN (Reason: Cough) Qty: 30 0RF amoxicillin [amoxicillin] 500 mg tablet 500 mg PO TID 10 Days Qty: 30 0RF No Action levothyroxine [Euthyrox] 25 mcg tablet See Rx Instructions .ROUTE .COMPLEX Qty: 90 3RF Dose Instruction: Take 1 tablet by mouth once daily Rx Instructions: Take 1 tablet by mouth once daily polyethylene glycol 3350 [ClearLax] 17 gram/dose powder 17 g PO DAILY Qty: 238 3RF Referrals Follow up/Referrals: Winston Strickland APRN [Primary Care Provider] - See instructions Activity Restrictions/Add. Instructions Additional Instructions/Restrictions: Encourage him to drink fluids Watch his temperature and give him tylenol or ibuprofen for pain/fever Give the medication as prescribed. Follow up with his poker dealer. GO TO THE EMERGENCY ROOM FOR ANY WORSENING OR LIFE THREATENING SYMPTOMS. Clinical Impressions Clinical Impression: Viral syndrome Instructions Patient Instructions: DI for Viral Syndrome, Ondansetron Discharge ED Provider: Jeremy Rouse [facility] General Stated complaint: Vomitting, fever Time Seen by Provider: 02/04/22 14:29 History of Present Illness Provider Complaint: His mother states that the patient has had vomiting and feeling bad since yesterday. He has a history of Down's Syndrome. Related Data Previous Rx's Medication Instructions Recorded levothyroxine 25 mcg tablet See Rx Instructions .Route 11/04/21 (Euthyrox) .COMPLEX #90 tabs polyethylene glycol 3350 17 17 g PO DAILY #238 grams 11/04/21 gram/dose oral powder (ClearLax) amoxicillin 500 mg tablet 500 mg PO TID 10 days #30 tabs 02/04/22 benzonatate 100 mg capsule 100 mg PO TIDP PRN Cough #30 caps 02/04/22 ondansetron 4 mg disintegrating 4 mg PO Q8H PRN Nausea #12 tabs 02/04/22 tablet Allergies Allergy/AdvReac Type Severity Reaction Status Date / Time No Known Allergies Allergy Verified 02/04/22 15:01 [facility] Medical History Family history of ischemic heart disease HLD (hyperlipidemia) Social History Smoking Status: Never smoker second hand exposure: No alcohol intake: never counseling provided: none substance use type: denies use current occupational status: disabled Travel in the last 8 weeks: None household members: family housing: house caffeine: Yes ROS Obtained: Yes All systems reviewed & no additional complaints except as documented Constitutional Constitutional: Denies chills, Denies fever(s) and Reports poor appetite ENT Ears, Nose, Mouth, and Throat: Denies dizziness and Denies sore throat Cardiovascular Cardiovascular: Denies dyspnea Respiratory Respiratory: Denies chest congestion, Denies cough and Denies dyspnea Gastrointestinal Gastrointestingal: Reports as per HPI Genitourinary Male Genitourinary: Denies hematuria, Denies urinary frequency, Denies urinary hesitancy, Denies urinary incontinence and Denies urinary urgency Musculoskeletal Musculoskeletal: Denies arthralgias Integumentary/Breasts Skin/Breast: Denies rash Neurologic Neurologic: Denies dizziness Physical Exam General General appearance: alert and in no apparent distress Head Head exam: atraumatic and normocephalic Eye Eye exam: Present normal appearance, PERRL and EOMI ENT ENT exam: Present normal exam, normal oropharynx, mucous membranes moist, TM's normal bilaterally and normal external ear exam Neck Neck exam: Present normal inspection, full ROM and trachea midline; Absent tenderness, meningismus or lymphadenopathy Chest Chest inspection: Present normal inspection and symmetric chest wall
[2022-02-04 14:55] VITALS: BP 127/59; PULSE 91; RESP 18; TEMP 37.2; O2SAT 99; BMI 23.8
[2022-02-04 15:07] LABS: UTC Influenza A Antigen Negative (Negative); UTC Influenza B Antigen Negative (Negative); UTC Strep Screen (Rapid) Negative (Negative)
[2022-02-04 15:10] VITALS: BP 127/59; PULSE 91; RESP 18; TEMP 37.2
[2022-02-04 15:34] LABS: Adenovirus,PCR Not Detected (NotDetected); Bordetella Pertussis Not Detected (NotDetected); Chlamydophila Pneumoniae, PCR Not Detected (NotDetected); Coronavirus 19, PCR Not Detected (NotDetected); Coronavirus 229E Not Detected (NotDetected); Coronavirus NL63 Not Detected (NotDetected); Coronavirus OC43 Not Detected (NotDetected); Coronovirus HKU1,PCR Not Detected (NotDetected); Human Metapneumovirus Not Detected (NotDetected); Influenza A, PCR Not Detected (NotDetected); Influenza AH1, 2009 Not Detected (NotDetected); Influenza AH1, PCR Not Detected (NotDetected); Influenza B, PCR Not Detected (NotDetected); Mycoplasma Pneumoniae, PCR Not Detected (NotDetected); Parainfluenza 1, PCR Not Detected (NotDetected); Parainfluenza 2, PCR Not Detected (NotDetected); Parainfluenza 3, PCR Not Detected (NotDetected); Parainfluenza 4, PCR Not Detected (NotDetected); Respiratory Syncytial Virus Not Detected (NotDetected); Rhinovirus/Enterovirus Not Detected (NotDetected)
[2022-02-05 08:57] LABS: Influenza AH3,PCR Detected (NotDetected)
== END 2022-02-04 15:18 | disposition home or self-care (01) ==
PROVIDERS: Emergency Provider Nurse Practitioner Family; PCP Nurse Practitioner Family
DX: J10.1 Influenza due to other identified influenza virus with other respiratory manifestations (principal)
CPT/HCPCS: 87581; 87632; 87798; 87804; 87880; 99212; C9803; G0463; U0003; U0005

== ENCOUNTER 2022-06-21 15:35 | Emergency (ER) | payer MEDICAID, SELFPAY ==
[2022-06-21 16:05] VITALS: BP 119/84; PULSE 97; RESP 18; TEMP 36.5; O2SAT 99; BMI 27.3
--- NOTE | 2022-06-21 16:11 | EXP.UTC ---
Discharge Plan Disposition Patient Disposition: Home, Self-Care Condition: Good Prescriptions Prescriptions: New ciprofloxacin HCl 0.3 % drops See Rx Instructions ophthalmic (eye) .COMPLEX Qty: 5 0RF Rx Instructions: put 1 drp in both eyes every 2hr x2days; then 4 times/day x5days No Action levothyroxine [Euthyrox] 25 mcg tablet 25 mcg PO DAILY Referrals Follow up/Referrals: Provider,Referral, MD [Primary Care Provider] - See instructions Activity Restrictions/Add. Instructions Additional Instructions/Restrictions: Use the eye drops as directed. Strict hand washing in the house hold, because conjunctivitis is very contagious. Follow up with your regular doctor. GO TO THE ER FOR ANY WORSENING SYMPTOMS OR CONCERNS Clinical Impressions Clinical Impression: Conjunctivitis Instructions Patient Instructions: How to Instill Eye Drops, DI for Conjunctivitis Discharge ED Provider: Jeremy Rouse [facility] General Stated complaint: possible pink eye Time Seen by Provider: 06/21/22 16:11 History of Present Illness Provider Complaint: He states that he has had left eye redness and irritation since yesterday. He denies any injury or foreign body. Related Data Home Medications Medication Instructions Recorded Confirmed levothyroxine 25 mcg tablet 25 mcg PO DAILY Supplement 06/21/22 06/21/22 (Euthyrox) Previous Rx's Medication Instructions Recorded ciprofloxacin HCl 0.3 % eye drops See Rx Instructions ophthalmic 06/21/22 (eye) .COMPLEX #5 mL Allergies Allergy/AdvReac Type Severity Reaction Status Date / Time No Known Allergies Allergy Verified 02/04/22 15:01 [facility] Disclaimer: The information contained in this section may have been updated after the patient was seen, as this information can be updated by other users. Medical History Family history of ischemic heart disease HLD (hyperlipidemia) Social History Smoking Status: Never smoker second hand exposure: No alcohol intake: never counseling provided: none substance use type: denies use current occupational status: disabled Travel in the last 8 weeks: None household members: family housing: house caffeine: Yes ROS Obtained: Yes All systems reviewed & no additional complaints except as documented Constitutional Constitutional: Denies chills and Denies fever(s) Eyes Eyes: Reports eye discharge ENT Ears, Nose, Mouth, and Throat: Denies dizziness, Denies otalgia and Denies sore throat Cardiovascular Cardiovascular: Denies chest pain Respiratory Respiratory: Denies shortness of breath, Denies chest congestion, Denies cough, Denies stridor and Denies wheezing Gastrointestinal Gastrointestingal: Denies nausea or vomiting Musculoskeletal Musculoskeletal: Reports system reviewed and no additional complaints, except as documented and Denies arthralgias Integumentary/Breasts Skin/Breast: Denies rash Neurologic Neurologic: Denies dizziness and Denies paresthesias Allergic/Immunologic Allergic/Immunologic: Denies wheezing Physical Exam General General appearance: alert and in no apparent distress Head Head exam: atraumatic, normocephalic and normal inspection Eye Eye exam: Present PERRL, EOMI, conjunctival redness, conjunctival injection and discharge ENT ENT exam: Present normal exam, normal oropharynx, mucous membranes moist, TM's normal bilaterally and normal external ear exam Neck Neck exam: Present normal inspection, full ROM and trachea midline; Absent meningismus or lymphadenopathy Chest Chest inspection: Present normal inspection and symmetric chest wall rise; Absent tenderness Respiratory Respiratory exam: Present normal lung sounds bilaterally; Absent respiratory distress Cardiovascular Cardiovascular exam: Present regular rate and normal rhythm; Absent JVD Abdominal Exa
[2022-06-21 17:00] VITALS: BP 119/84; PULSE 97; RESP 18; TEMP 36.5; O2SAT 99
== END 2022-06-21 17:03 | disposition home or self-care (01) ==
PROVIDERS: Emergency Provider Nurse Practitioner Family
DX: H10.31 Unspecified acute conjunctivitis, right eye (principal)
CPT/HCPCS: 99212; 99214; G0463

== ENCOUNTER 2023-10-05 15:55 | Outpatient (CLI) | payer MEDICAID, SELFPAY ==
--- NOTE | 2023-10-05 16:02 | XR_ITS ---
FINAL REPORT CLINICAL HISTORY: ankle pain FINDINGS: Left ankle Three views were obtained. There is no acute fracture or dislocation. There are mild degenerative changes. Marked lateral soft tissue swelling is seen. IMPRESSION: Marked soft tissue swelling. Reviewed, Interpreted and Dictated by cSooby Coelho III, MD Transcribed by Molly Parrish Authenticated and [facility]
--- NOTE | 2023-10-05 16:02 | XR_ITS ---
FINAL REPORT CLINICAL HISTORY: ankle pain FINDINGS: Right ankle Three views were obtained. There is no acute fracture or dislocation. There are mild degenerative changes. Marked lateral soft tissue swelling is seen. IMPRESSION: Marked soft tissue swelling. Reviewed, Interpreted and Dictated by Scooby Coelho III, MD Transcribed by Molly Parrish Authenticated and [facility]
--- NOTE | 2023-10-05 16:11 | ECG_ITS ---
APPROVED REPORT Exam: Resting ECG HR:85 bpm ECG Measurements Heart Rate 85 AXES TX 123 P 17 QRSd 87 QRS 114 QT 334 T 48 QTc 376 Conclusion SINUS RHYTHM POSSIBLE RIGHT VENTRICULAR HYPERTROPHY [SOME/ALL OF: PROMINENT R IN V1, LATE TRANSITION, RAD, SELAM, SSS] ABNORMAL ECG UNCONFIRMED REPORT Electronically signed by : Carlos Lamas MD 10/06/2023 08:32:06
== END 2023-10-05 23:59 | disposition home or self-care (01) ==
LOC: RAD 15:57
PROVIDERS: PCP Internal Medicine; Visit Provider Podiatrist
DX: M79.671 Pain in right foot (principal); M79.672 Pain in left foot; M25.372 Other instability, left ankle
CPT/HCPCS: 73610; 93005

== ENCOUNTER 2023-10-13 08:44 | Day surgery (SDC) | payer MEDICAID, SELFPAY ==
[2023-10-11 12:59] VITALS: BMI 25.7
[2023-10-13] VITALS (9 sets, daily range): BP systolic 101–132; BP diastolic 43–91; PULSE 94–110; RESP 14–20; TEMP 36.4–36.8; O2SAT 91–99; BMI 25.7
[2023-10-13] MEDS: LACTATED RINGERS 1000ML 1,000 ML 25 ML IV (09:22)
[2023-10-13] MEDS: CEFAZOLIN SODIUM 2 GM in 0.9 % SODIUM CHLORIDE 100 ML IV (10:20)
--- NOTE | 2023-10-13 10:40 | P.PNANES_ITS ---
[facility] Disclaimer: The information contained in this section may have been updated after the patient was seen, as this information can be updated by other users. Medical History Hyperthyroidism Heart murmur Seasonal allergies Eczema of external ear Bilateral impacted cerumen Bilateral hearing loss due to cerumen impaction Overweight with body mass index (BMI) 25.0-29.9 Postoperative wound dehiscence Postoperative edema Synovial cyst of ankle and foot region Acquired hammertoes of both feet Benign neoplasm of skin of left ankle Left ankle instability Down syndrome HLD (hyperlipidemia) Family history of ischemic heart disease Surgical History Hx of tracheostomy History of placement of ear tubes S/P hernia surgery No significant past surgical history Family History Other Cancer Diabetes Heart disease Hypertension Social History (Updated 10/13/23 @ 09:23 by Janice Zamora RN) Smoking Status: Never smoker second hand exposure: No alcohol intake: never counseling provided: none substance use type: denies use current occupational status: disabled Travel in the last 8 weeks: None household members: family housing: house caffeine: Yes [facility] Anesthesia Checklist Patient Identification Patient Identification: Verbal (Name & ) Structural Data Admitted From: Home Planned Operative Procedure/s: excision mass r foot NPO Status Verified Time NPO: 00:00 Additional verifications Anesthesia Reactions: Yes (drowsiness) Hx Blood Transfusions: No Blood Transfusion Reaction: No Airway Assessment Mallampati Score:: Class III C-Spine Mobility Assessed: Yes TMJ Mobility Assessed: Yes Dentition: Poor Dentition Neurological Assessment Level of Consciousness: Awake, Alert and Appropriate Anesthesia Plan Anesthesia Risk discussed: Yes Anesthesia Plan: Verified ASA Class: II Anesthesia Type: General
--- NOTE | 2023-10-13 12:02 | P.PNANES_ITS ---
[facility] Anesthesia Record Part I Anesthesia Record I Intake, IV Amount: 1,500 Hydration: Adequate Estimated blood loss (mL): 0 Urine output (mL): 0 Blood Pressure: 127/91 SaO2: 92 Pulse Rate: 110 Airway Patency: Patent Respiratory Rate: 14 Temperature: 98.2 F Patient is:: Awake and Stable Stable to PACU at:: 12:00
--- NOTE | 2023-10-13 12:08 | EXP.OP.NOTE ---
Date of procedure: 10/13/23 Pre-op Diagnosis:: Right ankle soft tissue mass Right ankle synovitis Right ankle pain Post-op Diagnosis:: Same Procedure performed:: Right ankle excision of soft tissue mass/tumor (subfascial >5cm-[id number]) ankle arthrotomy with synovectomy ([id number]) Surgeon:: Sherri Nuñez DPM ASSISTANT DEAN OF STUDENTS:: Edu Smith Anesthesia: GETA and regional (R popliteal nerve block) Estimated blood loss (mL): 20 Clinical Note:: Patient is a 43-year-old male with Down syndrome who presents for b/l ankle calluses and right ankle soft tissue mass and surgical planning. We discussed conservative or surgical intervention. He has failed conservative care. Symptoms are unchanged. Patient has tried modification of shoe gear, modification of activity, RICE protocol, elevation, compression and NSAIDs. Indications: negative x-rays right ankle as above. Indications: Soft tissue mass present over 13-15 years on right with worsening callus formation, fast growing ankle mass with fluctuance, increased pain and swelling, limiting shoe gear and activity. He had similar pathology with surgery to left ankle on 08/07/20. Post op he had Zofran, [place] 7.5/325mg/15ml prn pain. He did develop a post op wound without infection. All risks and benefits were discussed including but not limited to: recurrence of the mass, damage to blood vessels and nerves, bleeding, infection, wound complications, need for further surgery, prolonged swelling of the extremity, prolonged pain, RSD/CRPS, DVT/PE and anesthetic complications include . No guarantees were given. All questions fully answered. The patient verbalized understanding and agreed to proceed with surgery. Written consent was obtained. Operative findings:: Soft tissue mass/tumor noted to the lateral aspect of the right ankle overlying the lateral malleolus. Right ankle has a firm but fluctuant nodule soft tissue mass over the distal fibula. Immediately dissection through skin over the central portion of the mass there was blisterlike serous fluid expressed. Minimal subcutaneous tissue noted. Synovitis and scar tissue noted just under the skin full-thickness and what should have been normal subcutaneous tissue and extended to/including deep fascia. The mass extends over the anterior ankle and behind the fibula. The mass was synovitic in appearance with pink tissue noted. No purulence, malodor and no obvious signs of infection. Internal septations within the lesion. Multiple irregular blood vessels noted throughout the lesion. There were areas of the vasculature which were hypertrophied and lobulated. Post excision the mass consisted of subcutaneous tissue, deep fascia, blood vessels was firm and measured 6.2 x 5.1 x 0.5 cm thick. Concern over the extent of the soft tissue mass and the vascularity and synovitis. Mass sent to pathology. Rule out PVNS (pigmented villonodular synovitis) and hemangioma. Operative note:: On this date and time patient was deemed an appropriate surgical candidate. With informed consent signed, the patient was taken to the operating theater. The patient was positioned supine. General anesthesia was induced. Tourniquet was applied to mid-calf and set at 225 mmHg. The right extremity was prepped and draped in normal sterile fashion. Right ankle arthrotomy with synovectomy: Attention was directed to the lateral left foot/ankle where a visible and palpable soft tissue mass was noted. A lazy S incision was mapped out over the mass. Dissection carried down through the skin. Over the central aspect of the mass immediately serous blisterlike fluid was expressed. Dissection was carried down through what should have been normal subcutaneous tissue however there was synovitis and fibrosis of the tissue full-thickness including skin, abnormal subcutaneous tissue down to/including the deep fascia. There was synovitis noted throughout and surrounding mass, piece sent for path. Utilizing 15 blade and forceps the nonviable synovitic tissue surrounding the mass was sharply removed. Right soft tissue mass excision: Care was taken to maintain surgical hemostasis and safely retract neurovascular structures. Vessels entering the mass were ligated and and tied as necessary. Bleeding controlled. At this point the limb was exsanguinated and the tourniquet was inflated. Using a mixture of sharp and blunt and dissection technique the mass was isolated. There was no obvious ganglion cyst, no gelatinous material expressed. Mass extended over the top of the anterior ankle and behind the fibula. Dissection was carried down to the level of the distal fibula. The bone was intact. Internal septations within the lesion, soft tissue mass. Multiple irregular blood vessels noted throughout the lesion. There were areas of the vasculature which were hypertrophied and lobulated. Post excision the mass consisted of subcutaneous tissue, deep fascia, blood vessels, overall the mass felt firm. See op findings for measurements. The mass was removed and sent as a specimen. The wound was flushed with copious amounts of normal sterile saline. The tourniquet was deflated and immediate hyperemic response was noted to the digits. Bleeding controlled. Vessels ligated with electrocautery and tied as necessary. The wounds once again flushed with copious amounts of normal sterile saline. Surgicel powder inserted to control bleeding. It was re-explored and no more evidence of soft tissue mass. No signs of infection. Deep tissue was reapproximated with 2-0 Vicryl to cover the fibula. Application of graft: Decision was made to use a piece of graft since there was a defect noted to the lateral ankle. A piece of amniotic graft was applied over the defect. Vicryl was also used to re-approximate the subcutaneous tissue. Nylon used to closure skin. A Manolo guard applied over the highest area of tension to prevent wound dehiscence. The wounds were cleansed. Xeroform, dry sterile dressing was then applied to the right foot. Post procedure anesthesia performed a right popliteal nerve block. The patient was awoken from anesthesia and transferred to recovery with vital signs stable and neurovascular status intact. Patient tolerated procedure anesthesia well without complication. Materials: Surgicel powder, Manolo guard (Suture guard) x1, [employer] graft x 1 (4x4cm) Discharge/Plan: Ok to discharge home today when vss. Patient is to maintain dressing clean dry and intact. Elevate on two pillows. Partial weight bearing to the right lower extremity with short fracture boot and walker. Follow up in one week as previously scheduled for incision check. Tourniquet time (min): 40 Condition: stable Disposition: same day Specimens:: Right ankle soft tissue mass Right ankle synovium Complications:: None
--- NOTE | 2023-10-14 07:16 | EXP.ANES.II ---
[facility] Anesthesia Record Part II Anesthesia Record Part II Discharge Time: 12:30 Destination: Surgical Day Care (OP Surgery) PACU nurse assessment reviewed?: Yes Patient Condition:: Good Anesthesia Complications:: None Swallowing reflex intact?: Yes Airway Patency: Patent Cyanosis?: No Blood Pressure: 114/71 SaO2: 95 Respiratory Rate: 18 Pulse Rate: 106 Temperature: 97.9 F Mental Status: Alert & Oriented Pain level:: 0 Nausea and/or vomitting:: None Intake, IV Amount: 0 Hydration: Adequate
[2023-10-14 07:17] VITALS: BP 114/71; PULSE 106; RESP 18; TEMP 36.6; O2SAT 95
== END 2023-10-13 13:01 | disposition home or self-care (01) ==
PROVIDERS: PCP Internal Medicine; Visit Provider Podiatrist
PROC: (CPT 27634; principal; 2023-10-13 10:15)
DX: M65.871 Other synovitis and tenosynovitis, right ankle and foot (principal); D21.21 Benign neoplasm of connective and other soft tissue of right lower limb, including hip
CPT/HCPCS: 27634; 27625; 96374; C1713; J0690; J2250; J3010; J7120

== ENCOUNTER 2023-11-16 18:15 | Observation (INO) | payer MEDICAID, SELFPAY ==
[2023-11-16 18:17] VITALS: BP 147/84; PULSE 87; RESP 16; TEMP 36.9; O2SAT 98; BMI 29.2
--- NOTE | 2023-11-16 18:30 | ED_ITS ---
<Statement entered by Kizzy Stone DO - 11/16/23 21:59> I was consulted by the TERA, and we discussed the complexity of the problems being addressed. I approved the treatment and management plan for this patient's care in the emergency department, thus performing a substantive portion of the medical decision making. Kizzy Stone DO Discharge Plan Disposition Patient Disposition: Admitted Condition: Fair Clinical Impressions Clinical Impression: Dehiscence of operative wound Qualifiers: Encounter type: initial encounter Qualified Code(s): T81.31XA - Disruption of external operation (surgical) wound, not elsewhere classified, initial encounter Discharge ED Provider: Kizzy Stone General Adult HPI General Chief complaint: Wound/Laceration Stated complaint: Right leg bleeding from surgery site Time Seen by Provider: 11/16/23 18:21 Mode of Arrival: Ambulatory Source of Information: Parent(s) Limitations: No Limitations Description of Symptoms (Recalled from ER Triage Doc. by RN): Mom states patient had surgery on his right ankle last month. Followed up with Dr. Nuñez last week and had the sutures removed. Mom states that after picking him up from adult daycare she noticed his incision was bleeding and had opened up. History of Present Illness HPI narrative: Patient presents for evaluation of postoperative wound infection. Patient had a lipoma removed from his right lateral malleolus by Dr. Nuñez of podiatry. She actually saw him in the office last week and took out sutures. However in the interval he has had wound dehiscence and his mom has noted that there is a very strong smell coming from the site. Patient himself denies any pain chest pain shortness of breath fever chills hemoptysis hematochezia melena nausea vomiting diarrhea reduced range of motion. Related Data Home Medications ?Medication ?Instructions ?Recorded ?Confirmed cetirizine 10 mg tablet (Allergy 10 mg PO DAILY 10/11/23 11/11/23 Relief (cetirizine)) polyethylene glycol 3350 17 17 g PO WEEKLY 10/11/23 11/11/23 gram/dose oral powder (Miralax) Previous Rx's ?Medication ?Instructions ?Recorded fluticasone propionate 50 1 spray intranasal DAILY #16 grams 11/19/22 mcg/actuation nasal spray,suspension (Flonase Allergy Relief) levothyroxine 25 mcg tablet See Rx Instructions .Route 10/26/23 .COMPLEX #90 tabs Allergies Allergy/AdvReac Type Severity Reaction Status Date / Time No Known Allergies Allergy Verified 11/11/23 09:38 [facility] Disclaimer: The information contained in this section may have been updated after the patient was seen, as this information can be updated by other users. Medical History (Updated 11/16/23 @ 20:14 by NEHAL Altamirano) Hearing difficulty of right ear Ear congestion Cerumen impaction Hyperthyroidism Heart murmur Seasonal allergies Eczema of external ear Bilateral impacted cerumen Bilateral hearing loss due to cerumen impaction Overweight with body mass index (BMI) 25.0-29.9 Postoperative wound dehiscence Postoperative edema Synovial cyst of ankle and foot region Acquired hammertoes of both feet Benign neoplasm of skin of left ankle Left ankle instability Down syndrome HLD (hyperlipidemia) Family history of ischemic heart disease Surgical History (Updated 11/11/23 @ 09:49 by TONI Berg) History of ankle surgery History of tympanoplasty Hx of tracheostomy History of placement of ear tubes S/P hernia surgery Family History Other Cancer Diabetes Heart disease Hypertension Social History Smoking Status: Never smoker second hand exposure: No alcohol intake: never counseling provided: none substance use type: denies use current occupational status: disabled Travel in the last 8 weeks: None household members: family housing: house caffeine: Yes ROS Obtained: Yes Systems reviewed as appropriate & no additional complaints except as documented Physical Exam General General appearance: alert and in no apparent distress Respiratory Respiratory exam: Present normal lung sounds bilaterally Cardiovascular Cardiovascular exam: Present regular rate and normal rhythm Expanded Lower Extremity Exam Right: Ankle image: 2 1. Significant wound dehiscence along with visible necrotic tissue Neurological Exam Neurological exam: Present alert and oriented X3 Medical Decision Making Medical Records Medical records reviewed: Yes I reviewed the patient's medical records. Edmar Inquiry Pt receiving controlled substance: No Vital Signs: 11/16/23 18:17 11/16/23 20:54 Temperature 98.4 F 97.8 F Temperature Source Oral Oral Pulse Rate 112 H Pulse Rate [Radial] 87 Respiratory Rate 16 18 Blood Pressure 99/80 L Blood Pressure [Right Arm] 147/84 H Blood Pressure Mean [Right Arm] 105 Blood Pressure Source [Right Arm] Automatic Cuff Blood Pressure Position [Right Arm] Sitting 02 Sat by Pulse Oximetry 98 Oxygen Delivery Method Room Air Room Air Lab Data Lab results reviewed: Yes I reviewed the patient's lab results. Lab Results 11/16/23 18:46: WBC 6.9, RBC 4.87, Hgb 14.3, Hct 44.6, MCV 91.6, MCH 29.4, MCHC 32.1, RDW 15.1, Plt Count 277, MPV 8.3, Neut % (Auto) 69.7, Lymph % (Auto) 19.5, Jackson % (Auto) 4.5, Eos % (Auto) 4.5, Baso % (Auto) 1.7, Neut # (Auto) 4.8, Lymph # (Auto) 1.4, Jackson # (Auto) 0.3, Eos # (Auto) 0.3, Baso # (Auto) 0.1, ESR 23 H, Sodium 138, Potassium 3.9, Chloride 106, Carbon Dioxide 28, Anion Gap 7.9, BUN 19, Creatinine 0.90, Estimated Creat Clear 103, Estimated GFR 93, Est GFR ( Amer) 112, Glucose 116 H, Lactate 1.1, Calcium 8.8, Total Bilirubin 0.4, AST 31, ALT 31, Alkaline Phosphatase 75, C-Reactive Protein 23.4 H, Total Protein 7.2, Albumin 3.8, Globulin 3.4 H, Albumin/Globulin Ratio 1.1, Procalcitonin 0.041 11/16/23 18:46 11/16/23 18:46 Orders (Tests/Meds): ED MEDICATIONS Generic Name Dose Route Start Last Admin Trade Name Freq PRN Reason Stop Dose Admin Piperacillin Sod/Tazobactam 50 mls @ 100 mls/hr 11/16/23 20:00 11/16/23 20:15 Sod 3.375 gm/ Sodium Chloride IV 11/26/23 19:59 100 mls/hr Q6H RAFAEL Administration Vancomycin/PEG/NADA/Lysine/Water 1.5 gm in 300 mls @ 150 mls/hr 11/16/23 20:15 Vancomycin 1.5gm/300ml (Peg) Premix IV 11/16/23 22:14 ONCE ONE Piperacillin Sod/Tazobactam 50 mls @ 100 mls/hr 11/17/23 04:00 Sod 3.375 gm/ Sodium Chloride IV 11/27/23 03:59 Q8H [facility] Miscellaneous 1 each 11/16/23 20:00 Vancomycin Consult Request NOTAPPLIC 12/16/23 19:59 CON[facility]ULT [facility]Y [facility] Miscellaneous 1 each 11/16/23 20:45 Vancomycin Consult Request NOTAPPLIC 12/16/23 20:44 [facility] Discontinued Medications Generic Name Dose Route Start Last Admin Trade Name Elisa PRN Reason Stop Dose Admin Acetaminophen 1,000 mg 11/16/23 18:36 11/16/23 19:01 Acetaminophen 1,000mg/100ml Vial IV 11/16/23 18:37 1,000 mg ONCE ONE Administration Lactated Ringer's 1,000 mls @ 999 mls/hr 11/16/23 18:36 11/16/23 19:01 Lactated Ringer's 1000 Ml Bag IV 11/16/23 19:36 999 mls/hr .Q1H1M ONE Administration Iopamidol 120 ml 11/16/23 19:38 11/16/23 19:39 Iopamidol-370 (76%);100ml Bottle IV 11/16/23 19:39 120 ml ONCE ONE Administration Ketorolac Tromethamine 15 mg 11/16/23 18:36 11/16/23 19:01 Ketorolac 30mg/Ml Vial IV 11/16/23 18:37 15 mg ONCE ONE Administration Sodium Chloride 10 ml 11/16/23 19:38 11/16/23 19:39 Sodium Chloride 0.9% 10ml Syr (Rad Only) IV 11/16/23 19:39 10 ml ONCE ONE Administration Sodium Chloride 50 ml 11/16/23 19:38 11/16/23 19:39 0.9 % Sodium Chloride 50 Ml Vial IV 11/16/23 19:39 50 ml ONCE ONE Administration ORDERS Category Date Time Status CT ankle RT w con Stat Cat Scan 11/16/23 18:[address] foot RT w con Stat Cat Scan 11/16/23 18:47 Completed CBC w/Auto Diff [Complete Blood Count Auto Diff] Stat Lab 11/16/23 18:46 Completed CMP [Comprehensive Metabolic Panel] Stat Lab 11/16/23 18:46 Completed CRP [C-Reactive Protein] Stat Lab 11/16/23 18:46 Completed ESR [Erythrocyte Sedimentation Rate] Stat Lab 11/16/23 18:46 Completed Lactic Acid Stat Lab 11/16/23 18:46 Completed Procalcitonin Stat Lab 11/16/23 18:46 Completed Blood Culture Stat Micro 11/16/23 18:46 Received Wound Culture and Gram Stain Stat Micro 11/16/23 18:40 Results Medical Decision Narrative: In summary patient is a in summary patient is a 43-year-old male who presents to the emergency department for evaluation of postoperative wound dehiscence. Patient is hemodynamically stable upon arrival, afebrile. Physical exam shows the entirety of the surgical wound has dehisced with visible necrotic tissue. Culture swab does not meet resistance into the necrotic tissue until deep into the soft tissues of the foot concerning for deep space infection. Patient experiences no pain on palpation and has range of motion at the moment and appears to be neurovascular intact distally otherwise. Differential diagnosis includes necrotizing soft tissue infection versus necrotizing fasciitis. Initial workup will be conducted with hematologic labs wound cultures blood cultures CT exam of the foot and ankle. Initial interventions include crystalloid bolus vancomycin and Zosyn Toradol Tylenol. Initial workup reviewed by me and is reassuring as his hematologic labs are currently nonactionable however his CT imaging BMI informal TURP rotation shows a abscess forming in the soft tissues underneath the surgical site but no evidence of gas formation at the moment.. I had interactive discussion with Dr. Nuñez regarding patient's findings and she plans to take the patient to the operating room for debridement in the morning. Given this I had a interact discussion with hospital medicine about patient management and they have agreed for admission for further evaluation and care. Critical Care Critical Care Time Critical Care Time: No
--- NOTE | 2023-11-16 18:38 | PC.NURSE ---
Reji DUARTE at BS
--- NOTE | 2023-11-16 18:47 | CT_ITS ---
PROCEDURE INFORMATION: Exam: CT Right Lower Extremity, Foot Exam date and time: 11/16/2023 7:27 PM Age: 43 years old Clinical indication: Other: Open wound; Prior surgery; Surgery date: <1 month; Surgery type: Right lateral ankle surgery; Additional info: Wound dehiscence rule out necrotizing sti TECHNIQUE: Imaging protocol: CT of the right lower extremity with intravenous contrast was performed. Exam focused on the foot. Radiation optimization: All CT scans at this facility use at least one of these dose optimization techniques: automated exposure control; mA and/or kV adjustment per patient size (includes targeted exams where dose is matched to clinical indication); or iterative reconstruction. Contrast material: ISOVUE; Contrast volume: 120 ml; Contrast route: IV; COMPARISON: CT ANKLE RT W CON 11/16/2023 7:27 PM FINDINGS: Bones/joints: Unremarkable osseous structures for acute findings. Anatomically aligned osseous structures. Normal bony density. Soft tissues: Poorly defined, complex soft tissue fluid collection along right lateral mid and hindfoot within open wound and corresponding to clinical findings. Collection measures 1.4 x 4.9 x 3.8 cm. No separate soft tissue air. Extensive soft tissue edema adjacent to fluid collection and open wound. IMPRESSION: 1. Complex soft tissue fluid collection/developing abscess along open wound and regional edema without evidence for obvious necrotizing fasciitis. 2. No acute osseous findings by CT criteria.
--- NOTE | 2023-11-16 18:47 | CT_ITS ---
PROCEDURE INFORMATION: Exam: CT Right Lower Extremity, Ankle Exam date and time: 11/16/2023 7:27 PM Age: 43 years old Clinical indication: Other: Open wound; Prior surgery; Surgery date: <1 month; Surgery type: Right lateral ankle SX; Additional info: Wound dehiscence rule out necrotizing sti TECHNIQUE: Imaging protocol: CT of the right lower extremity with intravenous contrast was performed. Exam focused on the ankle. Radiation optimization: All CT scans at this facility use at least one of these dose optimization techniques: automated exposure control; mA and/or kV adjustment per patient size (includes targeted exams where dose is matched to clinical indication); or iterative reconstruction. Contrast material: ISOVUE; Contrast volume: 120 ml; Contrast route: IV; COMPARISON: MR ANKLE RT WO/W CON 06/14/2020 8:54 AM FINDINGS: Bones/joints: Unremarkable osseous structures for acute findings. Soft tissues: Poorly defined, complex soft tissue fluid collection along right lateral mid and hindfoot within open wound and corresponding to clinical findings. Collection measures 1.4 x 4.9 x 3.8 cm. No separate soft tissue air. Extensive soft tissue edema adjacent to fluid collection and open wound. IMPRESSION: 1. Complex soft tissue fluid collection/developing abscess along open wound and regional edema without evidence for obvious necrotizing fasciitis. 2. No acute osseous findings by CT criteria.
[2023-11-16 19:00] LABS: Basophils # 0.1 K/mm3 (0-0.2); Basophils % 1.7 % (0.1-2.0); Eosinophils # 0.3 K/mm3 (0.0-0.4); Eosinophils % 4.5 % (0.1-12.0); Hematocrit 44.6 % (42.0-52.0); Hemoglobin 14.3 g/dL (14.1-18.0); Lymphocytes # 1.4 K/mm3 (0.7-4.5); Lymphocytes % 19.5 % (10-50); Mean Corpuscular HGB Conc 32.1 g/dL (31.8-35.4); Mean Corpuscular Hemoglobin 29.4 pg (27.0-31.2); Mean Corpuscular Volume 91.6 fl (80-94); Mean Platelet Volume 8.3 fl (7.4-10.4); Monocytes # 0.3 K/mm3 (0.1-1.0); Monocytes % 4.5 % (1.7-9.3); Neutrophils # 4.8 K/mm3 (1.8-7.8); Neutrophils % 69.7 % (37.0-80.0); Platelet Count 277 K/mm3 (142-424); Red Blood Count 4.87 M/mm3 (4.60-6.20); Red Cell Distribution Width 15.1 % (11.5-17.5); White Blood Count 6.9 K/mm3 (4.8-10.8)
[2023-11-16] MEDS: KETOROLAC 30MG/ML VIAL 15 MG IV (19:01)
[2023-11-16] MEDS: ACETAMINOPHEN 1,000MG/100ML VIAL 1000 MG IV (19:01)
[2023-11-16] MEDS: LACTATED RINGERS 1000ML 1,000 ML 999 ML IV (19:01)
[2023-11-16 19:07] LABS: Lactic Acid 1.1 mmol/L (0.7-2.1)
[2023-11-16 19:09] LABS: Alanine Aminotransferase 31 U/L (12-78); Albumin Level 3.8 g/dl (3.5-5.0); Albumin/Globulin Ratio 1.1 (1.1-1.8); Alkaline Phosphatase 75 U/L (38-126); Anion Gap 7.9 mEq/L (5-15); Aspartate Amino Transferase 31 U/L (17-59); Bilirubin,Total 0.4 mg/dl (0.2-1.3); Blood Urea Nitrogen 19 mg/dl (9-20); Calcium 8.8 mg/dl (8.4-10.2); Carbon Dioxide 28 mmol/L (22.0-30.0); Chloride 106 mmol/L (98-107); Creatinine Clearance Estimated 103 mL/min (50-200); Estimated Glomerular Filt Rate 93 ml/min (>60); GFR (African American) 112 ML/MIN (>60); Globulin 3.4 g/dL (1.3-3.2); Glucose 116 mg/dl (74-100); Potassium 3.9 mmoL/L (3.5-5.1); Sodium 138 mmol/L (136-145); Total Protein,Serum 7.2 g/dl (6.3-8.2)
[2023-11-16 19:12] LABS: C-Reactive Protein 23.4 mg/L (0-4)
[2023-11-16 19:26] LABS: Procalcitonin 0.041 ng/mL (0.0-2.0)
[2023-11-16] MEDS: 0.9 % SODIUM CHLORIDE 50 ML VIAL IV (19:39)
[2023-11-16] MEDS: SODIUM CHLORIDE 0.9% 10ML SYR (RAD ONLY) 10 ML IV (19:39)
[2023-11-16] MEDS: IOPAMIDOL-370 (76%);100ML BOTTLE 120 ML IV (19:39)
--- NOTE | 2023-11-16 19:42 | PC.NURSE ---
pt back in room from CT
[2023-11-16] MEDS: PIPERCILLIN/TAZO 3.375 GM in 0.9 % SODIUM CHLORIDE 50 ML IV (20:15)
--- NOTE | 2023-11-16 20:41 | PC.NURSE ---
Report given to FREDDY Henderson
[2023-11-16 20:43] LABS: Erythrocyte Sedimentation Rate 23 mm/hr (0-15)
[2023-11-16 20:54] VITALS: BP 99/80; PULSE 112; RESP 18; TEMP 36.6; O2SAT 97
--- NOTE | 2023-11-16 20:58 | PC.NURSE ---
Patient arrived to floor via wheelchair from ED at 20:58.
[2023-11-16 21:19] VITALS: BP 99/80; PULSE 101; RESP 16; O2SAT 95; BMI 29.7
[2023-11-16] MEDS: TRAZODONE 50MG TABLET 25 MG PO (21:44)
[2023-11-16] MEDS: VANCOMYCIN/WATER FOR INJ (PEG) 1.5 GM/300 ML PIGGYBACK IV (21:45)
[2023-11-16] MEDS: 0.9 % SODIUM CHLORIDE 1000ML 1,000 ML 75 ML IV (21:45)
[2023-11-16] MEDS: VANCOMYCIN CONSULT REQUEST 1 EACH NOTAPPLIC ×2 (21:45→21:46)
--- NOTE | 2023-11-16 21:50 | P.HP_ITS ---
History of Present Illness *Admission Date: 11/16/23 *Reason for visit:: Wound dehiscence *History of present illness: This is a 43-year-old male with past medical history of Down syndrome, hypothyroidism who recently underwent excision of right ankle soft tissue mass on 10/[address] Nuñez. He has had multiple office visits where he has been doing well but mom noticed today that the ankle had an area that was opened. He presents today with without any pain complaints but with open wound. Denies fever. Inflammatory markers elevated in the ER from 23. CRP of 23 all other labs stable. Procalcitonin negative. Dr. Nuñez was consulted and recommends n.p.o. 4 OR tomorrow. He has been covered with vancomycin and Zosyn admitted to the hospitalist service [facility] Disclaimer: The information contained in this section may have been updated after the patient was seen, as this information can be updated by other users. Medical History Hearing difficulty of right ear Ear congestion Cerumen impaction Hyperthyroidism Heart murmur Seasonal allergies Eczema of external ear Bilateral impacted cerumen Bilateral hearing loss due to cerumen impaction Overweight with body mass index (BMI) 25.0-29.9 Postoperative wound dehiscence Postoperative edema Synovial cyst of ankle and foot region Acquired hammertoes of both feet Benign neoplasm of skin of left ankle Left ankle instability Down syndrome HLD (hyperlipidemia) Family history of ischemic heart disease Surgical History History of ankle surgery History of tympanoplasty Hx of tracheostomy History of placement of ear tubes S/P hernia surgery Family History Other Cancer Diabetes Heart disease Hypertension Social History (Updated 11/16/23 @ 21:32 by Beatriz Coleman RN) Smoking Status: Never smoker second hand exposure: No alcohol intake: never counseling provided: none substance use type: denies use current occupational status: disabled Travel in the last 8 weeks: None household members: family housing: house caffeine: Yes Review of Systems Review of Systems Review of systems (narrative): Negative except for HPI Meds Home Medications and Allergies Home Medications ?Medication ?Instructions ?Recorded ?Confirmed ?Type fluticasone propionate 50 1 spray intranasal DAILY #16 grams 11/19/22 11/16/23 Rx mcg/actuation nasal spray,suspension (Flonase Allergy Relief) cetirizine 10 mg tablet (Allergy 10 mg PO DAILY PRN Allergy Symptoms 10/11/23 11/16/23 History Relief (cetirizine)) polyethylene glycol 3350 17 17 g PO WEEKLY 10/11/23 11/16/23 History gram/dose oral powder (Miralax) levothyroxine 25 mcg tablet 25 mcg PO DAILY 11/16/23 11/16/23 History New Prescriptions to Start Prescriptions: Allergies Allergy/AdvReac Type Severity Reaction Status Date / Time No Known Allergies Allergy Verified 11/11/23 09:38 Exam Data for Last 24 hours Vital signs and Labs for Last 24 Hours: Temp Pulse Resp BP Pulse Ox O2 Del Method 97.8 F 101 H 16 99/80 L 95 Room Air 11/16/23 20:54 11/16/23 21:19 11/16/23 21:19 11/16/23 21:19 11/16/23 21:19 11/16/23 21:19 Laboratory Results - last 24 hr 11/16/23 18:46: WBC 6.9, RBC 4.87, Hgb 14.3, Hct 44.6, MCV 91.6, MCH 29.4, MCHC 32.1, RDW 15.1, Plt Count 277, MPV 8.3, Neut % (Auto) 69.7, Lymph % (Auto) 19.5, [place] % (Auto) 4.5, Eos % (Auto) 4.5, Baso % (Auto) 1.7, Neut # (Auto) 4.8, Lymph # (Auto) 1.4, [place] # (Auto) 0.3, Eos # (Auto) 0.3, Baso # (Auto) 0.1, ESR 23 H, Sodium 138, Potassium 3.9, Chloride 106, Carbon Dioxide 28, Anion Gap 7.9, BUN 19, Creatinine 0.90, Estimated Creat Clear 103, Estimated GFR 93, Est GFR ( Amer) 112, Glucose 116 H, Lactate 1.1, Calcium 8.8, Total Bilirubin 0.4, AST 31, ALT 31, Alkaline Phosphatase 75, C-Reactive Protein 23.4 H, Total Protein 7.2, Albumin 3.8, Globulin 3.4 H, Albumin/Globulin Ratio 1.1, Procalcitonin 0.041 I & O for Last 24 hours: Intake & Output 11/13/23 11/14/23 11/15/23 11/16/23 23:59 23:59 23:59 23:59 Output Total 0 / 0 Balance 0 / 0 Weight 68.81 kg Microbiology Reports for the Last 24 Hours: Microbiology 11/16/23 18:40 Ankle,Right Gram Stain - Final Constitutional Constitutional: no acute distress *Routine HEENT Exam Head: Present normocephalic Eye: Present EOMI and PERRL ENT: Present mucous membranes moist *Routine Neck Exam Neck: Present supple; Absent lymphadenopathy *Routine Respiratory Exam Respiratory: Present CTA bilaterally *Routine Cardiovascular Exam Cardiovascular: Present RRR *Routine Abdominal Exam Abdominal: Present soft and normoactive bowel sounds; Absent tenderness *Routine Rectal Exam Rectal:: deferred *Routine Genitalia Exam Genitalia:: deferred *Routine Extremities Exam Extremities: Absent cyanosis, clubbing or edema *Routine Skin Exam Comments: Right lateral malleolus with wound dehiscence, open the fascia with area of dark skin noted *Routine Neurological Exam Neurological: Present alert and oriented X3 Assessment and Plan *Assessment and plan (1) Dehiscence of operative wound: Status: Acute Qualifiers: Encounter type: initial encounter Qualified Code(s): T81.31XA - Disruption of external operation (surgical) wound, not elsewhere classified, initial encounter Category: Medical Code(s): T81.31XA - Disruption of external operation (surgical) wound, not elsewhere classified, initial encounter (2) Hypothyroid: Status: Acute Qualifiers: Hypothyroidism type: acquired Qualified Code(s): E03.9 - Hypothyroidism, unspecified Category: Medical Code(s): E03.9 - Hypothyroidism, unspecified Plan #Dehiscence of operative wound ?11/16 taken 2 OR today. Patient doing well so we will downgrade antibiotics from vancomycin/Zosyn to IV Dr Nuñez consulted, made n.p.o. 4 OR tomorrow Continue maintenance IV fluids Continue vancomycin and Zosyn Symptomatic and supportive care #Hypothyroidism Continue levothyroxine
[2023-11-17] VITALS (19 sets, daily range): BP systolic 97–131; BP diastolic 60–92; PULSE 80–121; RESP 16–20; TEMP 36–37.1; O2SAT 94–99; BMI 30.2
[2023-11-17] MEDS: PIPERACILLIN/TAZO 3.375 GM in 0.9 % SODIUM CHLORIDE 50 ML IV ×2 (03:55→11:47)
[2023-11-17 06:10] LABS: Anion Gap 7.8 mEq/L (5-15); Blood Urea Nitrogen 19 mg/dl (9-20); Calcium 8.1 mg/dl (8.4-10.2); Carbon Dioxide 25 mmol/L (22.0-30.0); Chloride 109 mmol/L (98-107); Creatinine Clearance Estimated 95 mL/min (50-200); Estimated Glomerular Filt Rate 82 ml/min (>60); GFR (African American) 99 ML/MIN (>60); Glucose 99 mg/dl (74-100); Potassium 3.8 mmoL/L (3.5-5.1); Sodium 138 mmol/L (136-145)
--- NOTE | 2023-11-17 06:54 | P.PN_ITS ---
Subjective *Date: 11/17/23 *Time: 08:10 Interval history: A 43-year-old male podiatry patient with medical history of Down syndrome, hypothyroidism who recently underwent excision of right ankle soft tissue mass on 10/13/[address] Nuñez. He has had several postop visits where he has been doing very well, the incision was maintained. Sutures were recently taken out and patient was able to start attending adult daycare. Patient presented to the emergency room on 11/16/2023 because mom had noticed that the ankle had an area that was opened. Patient did not complain of any pain and was afebrile, inflammatory markers elevated ESR 23, CRP 23.4 all the labs stable. Patient was admitted per hospitalist service with IV vancomycin and Zosyn antibiotics. Patient was made n.p.o. after midnight for podiatry consult. We will plan to allow the patient to have a breakfast this morning and then make him n.p.o. after breakfast at 0730. Ortho Exam (Inpt) Vital signs and Labs for Last 24 Hours: Temp Pulse Resp BP Pulse Ox O2 Del Method 97.8 F 84 16 114/60 95 Room Air 11/17/23 04:00 11/17/23 04:00 11/17/23 04:00 11/17/23 04:00 11/17/23 04:00 11/17/23 05:05 Laboratory Results - last 24 hr 11/16/23 18:46: WBC 6.9, RBC 4.87, Hgb 14.3, Hct 44.6, MCV 91.6, MCH 29.4, MCHC 32.1, RDW 15.1, Plt Count 277, MPV 8.3, Neut % (Auto) 69.7, Lymph % (Auto) 19.5, [place] % (Auto) 4.5, Eos % (Auto) 4.5, Baso % (Auto) 1.7, Neut # (Auto) 4.8, Lymph # (Auto) 1.4, [place] # (Auto) 0.3, Eos # (Auto) 0.3, Baso # (Auto) 0.1, ESR 23 H, Sodium 138, Potassium 3.9, Chloride 106, Carbon Dioxide 28, Anion Gap 7.9, BUN 19, Creatinine 0.90, Estimated Creat Clear 103, Estimated GFR 93, Est GFR ( Amer) 112, Glucose 116 H, Lactate 1.1, Calcium 8.8, Total Bilirubin 0.4, AST 31, ALT 31, Alkaline Phosphatase 75, C-Reactive Protein 23.4 H, Total Protein 7.2, Albumin 3.8, Globulin 3.4 H, Albumin/Globulin Ratio 1.1, Procalcitonin 0.041 11/17/23 05:25: Sodium 138, Potassium 3.8, Chloride 109 H, Carbon Dioxide 25, Anion Gap 7.8, BUN 19, Creatinine 1.00, Estimated Creat Clear 95, Estimated GFR 82, Est GFR ( Amer) 99, Glucose 99, Calcium 8.1 L I & O for Labs for Last 24 Hours: Intake & Output 11/14/23 11/15/23 11/16/23 11/17/23 23:59 23:59 23:59 23:59 Intake Total 750 / 750 Output Total 0 / 0 350 / 350 Balance 0 / 0 400 / 400 Weight 151 lb 11.2 oz 153 lb 11.2 oz Microbiology Reports for the Last 24 Hours: Microbiology 11/16/23 18:40 Ankle,Right Gram Stain - Final Constitutional: Present no acute distress and cooperative Head: Present normocephalic Eyes: Present as per HPI Neck: Present normal inspection, full ROM and trachea midline Respiratory: Present normal respiratory effort and able to speak in complete sentences Cardiac: Present posterior tibial pulses present and pedal pulses present Comments:: deferred Rectal (male): Present deferred (male): Present deferred Extremities: Present normal capillary refill and edema (Right lateral malleolus with open wound dehiscence, open the fascia with area of dark skin noted); Absent calf tenderness Skin: Present erythema, warm and wounds (Right lateral malleolus wound dehiscence approx. ~8.0 x 1.5x 0.2 cm, wound was cultured in the ER) Neuro: Present Motor Function Intact, Sensory Function Intact, oriented x 3, tone normal and moves all extremities Ankle: right: erythema, right: swelling and right: wound (Right lateral ankle wound with wound dehiscence) Feet Left and Right: 2 1. Right lateral malleolus with wound dehiscence, open fascia with area dark and peeling skin, erythema and edema noted. Site was cultured in the ER Feet/Toes: right: erythema and right: wound (Right lateral ankle wound with dehiscence) Assessment and Plan *Assessment and plan (1) Dehiscence of operative wound: Status: Acute Qualifiers: Encounter type: initial encounter Qualified Code(s): T81.31XA - Disruption of external operation (surgical) wound, not elsewhere classified, initial encounter Category: Medical Code(s): T81.31XA - Disruption of external operation (surgical) wound, not elsewhere classified, initial encounter (2) History of ankle surgery: Problem Comment: x2 Status: Acute Category: Surgical Code(s): Z98.890 - Other specified postprocedural states (3) Status post foot surgery: Status: Acute Category: Surgical Code(s): Z98.890 - Other specified postprocedural states (4) Acquired pes planus of both feet: Status: Chronic Category: Medical Code(s): M21.41 - Flat foot [pes planus] (acquired), right foot; M21.42 - Flat foot [pes planus] (acquired), left foot (5) Keratosis: Status: Chronic Category: Medical Code(s): L57.0 - Actinic keratosis (6) Down syndrome: Status: Chronic Category: Medical Code(s): Q90.9 - Down syndrome, unspecified (7) Left ankle instability: Status: Acute Category: Medical Code(s): M25.372 - Other instability, left ankle (8) Postoperative edema: Status: Acute Category: Medical Code(s): R60.9 - Edema, unspecified (9) Postoperative wound dehiscence: Status: Acute Qualifiers: Encounter type: subsequent encounter Qualified Code(s): T81.31XD - Disruption of external operation (surgical) wound, not elsewhere classified, subsequent encounter Category: Medical Code(s): T81.31XA - Disruption of external operation (surgical) wound, not elsewhere classified, initial encounter (10) Synovial cyst of ankle and foot region: Status: Acute Category: Medical Code(s): M71.379 - Other bursal cyst, unspecified ankle and foot (11) Edema of both lower extremities: Status: Acute Category: Medical Code(s): R60.0 - Localized edema (12) Chronic pain of both ankles: Status: Acute Category: Medical Code(s): M25.571 - Pain in right ankle and joints of right foot; M25.572 - Pain in left ankle and joints of left foot; G89.29 - Other chronic pain (13) Benign neoplasm of skin of right ankle: Status: Acute Category: Medical Code(s): D23.71 - Other benign neoplasm of skin of right lower limb, including hip Plan 11/17/2023: Surgery, 08/07/20: s/p left ankle soft tissue mass excision, ankle synovectomy, application of graft (Jonancy graft x 1), application of YOSI drain Surgery, 10/13/23: s/p Right ankle excision of soft tissue mass/tumor, ankle arthrotomy with synovectomy Intraop Specimens: Right ankle soft tissue mass: Benign fibromuscular tissue with disordered collagen proliferation. Negative for malignancy and significant acute inflammation. Right ankle synovium: Benign fibromuscular tissue with disordered collagen and the proliferation. Negative for malignancy and significant acute inflammation. -Patient may have Regular breakfast this morning and then be made n.p.o. at 730 right after breakfast -Wound cleaned with betadine, no debridement, applied betadine soaked 4x4 gauze, dry gauze, jose wrap. -Continue maintenance IV fluids -Continue vancomycin and Zosyn -Surgical consent for: Right ankle wound debridement, possible partial wound closure, possible wound VAC application was obtained. Site was marked and initialed by Dr. Nuñez. -Patient to have surgery later today per Dr. Nuñez
[2023-11-17 07:40] LABS: Basophils # 0.1 K/mm3 (0-0.2); Basophils % 1.4 % (0.1-2.0); Eosinophils # 0.2 K/mm3 (0.0-0.4); Eosinophils % 3.5 % (0.1-12.0); Hematocrit 42.5 % (42.0-52.0); Hemoglobin 13.4 g/dL (14.1-18.0); Mean Corpuscular HGB Conc 31.5 g/dL (31.8-35.4); Mean Corpuscular Hemoglobin 29.2 pg (27.0-31.2); Mean Corpuscular Volume 92.5 fl (80-94); Monocytes # 0.3 K/mm3 (0.1-1.0); Monocytes % 6.3 % (1.7-9.3); Neutrophils # 3.3 K/mm3 (1.8-7.8); Neutrophils % 67.7 % (37.0-80.0); Platelet Count 240 K/mm3 (142-424); Red Cell Distribution Width 15.3 % (11.5-17.5); White Blood Count 4.8 K/mm3 (4.8-10.8)
--- NOTE | 2023-11-17 08:00 | EXP.PHA.CONS ---
Pharmacy Consult Date: 11/17/23 Time: 08:00 Referring provider: JASIEL SAUCEDA APRN Reason for Consult:: VANCOMYCIN DOSING Allergies Allergy/AdvReac Type Severity Reaction Status Date / Time No Known Allergies Allergy Verified 11/11/23 09:38 Home Medications ?Medication ?Instructions ?Recorded ?Confirmed ?Type fluticasone propionate 50 1 spray intranasal DAILY #16 grams 11/19/22 11/16/23 Rx mcg/actuation nasal spray,suspension (Flonase Allergy Relief) cetirizine 10 mg tablet (Allergy 10 mg PO DAILY PRN Allergy Symptoms 10/11/23 11/16/23 History Relief (cetirizine)) polyethylene glycol 3350 17 17 g PO WEEKLY 10/11/23 11/16/23 History gram/dose oral powder (Miralax) levothyroxine 25 mcg tablet 25 mcg PO DAILY 11/16/23 11/16/23 History New Prescriptions to Start Prescriptions: Height: 1.52 m Weight: 69.717 kg Laboratory Results:: Laboratory Results - last 24 hr 11/16/23 18:46: WBC 6.9, RBC 4.87, Hgb 14.3, Hct 44.6, MCV 91.6, MCH 29.4, MCHC 32.1, RDW 15.1, Plt Count 277, MPV 8.3, Neut % (Auto) 69.7, Lymph % (Auto) 19.5, [place] % (Auto) 4.5, Eos % (Auto) 4.5, Baso % (Auto) 1.7, Neut # (Auto) 4.8, Lymph # (Auto) 1.4, [place] # (Auto) 0.3, Eos # (Auto) 0.3, Baso # (Auto) 0.1, ESR 23 H, Sodium 138, Potassium 3.9, Chloride 106, Carbon Dioxide 28, Anion Gap 7.9, BUN 19, Creatinine 0.90, Estimated Creat Clear 103, Estimated GFR 93, Est GFR ( Amer) 112, Glucose 116 H, Lactate 1.1, Calcium 8.8, Total Bilirubin 0.4, AST 31, ALT 31, Alkaline Phosphatase 75, C-Reactive Protein 23.4 H, Total Protein 7.2, Albumin 3.8, Globulin 3.4 H, Albumin/Globulin Ratio 1.1, Procalcitonin 0.041 11/17/23 05:25: WBC 4.8 D, RBC 4.60, Hgb 13.4 L, Hct 42.5, MCV 92.5, MCH 29.2, MCHC 31.5 L, RDW 15.3, Plt Count 240, MPV 8.0, Neut % (Auto) 67.7, Lymph % (Auto) 21.0, [place] % (Auto) 6.3, Eos % (Auto) 3.5, Baso % (Auto) 1.4, Neut # (Auto) 3.3, Lymph # (Auto) 1.0, [place] # (Auto) 0.3, Eos # (Auto) 0.2, Baso # (Auto) 0.1, Sodium 138, Potassium 3.8, Chloride 109 H, Carbon Dioxide 25, Anion Gap 7.8, BUN 19, Creatinine 1.00, Estimated Creat Clear 95, Estimated GFR 82, Est GFR ( Amer) 99, Glucose 99, Calcium 8.1 L Medical History: Medical History (Updated 11/16/23 @ 20:14 by NEHAL Altamirano) Hearing difficulty of right ear Ear congestion Cerumen impaction Hyperthyroidism Heart murmur Seasonal allergies Eczema of external ear Bilateral impacted cerumen Bilateral hearing loss due to cerumen impaction Overweight with body mass index (BMI) 25.0-29.9 Postoperative wound dehiscence Postoperative edema Synovial cyst of ankle and foot region Acquired hammertoes of both feet Benign neoplasm of skin of left ankle Left ankle instability Down syndrome HLD (hyperlipidemia) Family history of ischemic heart disease Assessment and Plan Assessment and plan all Dx Assessment and Plan for all problems:: Pharmacokinetic dosing service Objective: Patient: Floor: Age: 43 yo Serum creatinine: 1 mg/dL Height: 59.8 Inches Weight (kg): 69.7 Assessment: IBW (kg): 49.83 Dosing wt(kg): 69.7 Estimated Creatinine clearance (ml/min): 67.8 CRCL method: Cockcroft and Gault using ibw(default). Drug selected: Vancomycin Loading dose (mg): 0 Vd (liters): 55.8 (factor used: 0.8 L/kg) Gary (hr-1): 0.061 Half life (hrs): 11.36 Recommended dose: 1000 mg Interval: 12 hrs Infusion time (hrs): 2.0 Predicted peak (mcg/mL): 32.5 Predicted trough (mcg/mL): 17.66 Total body weight is being used for vancomycin dosing. Recommendations: Give Vancomycin 1000 mg q 12 hrs with an expected Cpeak of 32.5 mcg/ml and an expected Ctrough of 17.66 mcg/ml ----Vanco only - ignore for aminoglycosides----- CLvanco= 3.40 L/hr AUC 0-24 /DARREN Data: DARREN 0.5 mcg/mL: AUC/DARREN: 1176.5 DARREN 1.0 mcg/mL: AUC/DARREN: 588.2 --------- DARREN 1.5 mcg/mL: AUC/DARREN: 392.2 DARREN 2.0 mcg/mL: AUC/DARREN: 294.1
--- NOTE | 2023-11-17 08:29 | PC.WOUNDNOTE ---
Wound dehiscence right ankle
[2023-11-17] MEDS: LORATADINE 10MG TABLET 10 MG PO (08:38)
[2023-11-17] MEDS: FLUTICASONE PROP 50MCG NASAL SPRAY 16GM 1 SPRAY NS (08:38)
[2023-11-17] MEDS: VANCOMYCIN HCL 1,000 MG in 0.9 % SODIUM CHLORIDE 250 ML 125 MG IV (08:38)
[2023-11-17] MEDS: LEVOTHYROXINE 25MCG (0.025MG) TAB 25 MCG PO (08:39)
--- NOTE | 2023-11-17 13:58 | EXP.ACUTE.PN ---
Subjective *Date: 11/17/23 *Time: 14:02 Interval history: Patient extremely pleasant and interviewed by Dr. Oconnor today with family present. No new complaints. Eager for surgery today. N.p.o. after midnight in preparation for surgery. Both mother and patient's brother present during examination by Dr. Oconnor today. Medical Exam Vital signs and Labs for Last 24 Hours: Vital Signs Temp Pulse Pulse Resp BP BP Pulse Ox 11/17/23 13:00 97.9 F 97 H 19 118/78 97 11/17/23 13:00 11/17/23 11:00 11/17/23 09:00 11/17/23 08:00 11/17/23 07:42 97.5 F L 80 18 130/72 99 11/17/23 07:00 11/17/23 05:05 11/17/23 04:00 97.8 F 84 16 114/60 95 11/17/23 02:51 11/17/23 00:51 11/16/23 23:00 11/16/23 21:19 101 H 16 99/80 L 95 11/16/23 21:00 11/16/23 20:54 97.8 F 112 H 18 99/80 L 11/16/23 18:17 98.4 F 87 16 147/84 H 98 O2 Del Method 11/17/23 13:00 Room Air 11/17/23 13:00 Room Air 11/17/23 11:00 Room Air 11/17/23 09:00 Room Air 11/17/23 08:00 Room Air 11/17/23 07:42 Room Air 11/17/23 07:00 Room Air 11/17/23 05:05 Room Air 11/17/23 04:00 Room Air 11/17/23 02:51 Room Air 11/17/23 00:51 Room Air 11/16/23 23:00 Room Air 11/16/23 21:19 Room Air 11/16/23 21:00 Room Air 11/16/23 20:54 Room Air 11/16/23 18:17 Room Air Intake and Output 11/16/23 11/17/23 11/17/23 23:59 07:59 15:59 Intake Total 1110 / 1110 Output Total 0 / 0 350 / 350 0 / 350 Balance 0 / 0 760 / 760 0 / 760 Intake: Intake, Oral Amount 360 / 360 Intake, Total IV Amount 750 / 750 0.9 % Sodium Chloride 1000ML 1, 400 / 400 000 ml @ 75 mls/hr IV .[id number] [facility] [place] Rx#:[id number] Piperacillin/Tazo 3.375 gm In 0 50 / 50 .9 % Sodium Chloride 50 ml @ 100 mls/hr IV Q8H [facility] [place] Rx#: [id number] Vancomycin/Water For Inj (Peg) 300 / 300 1.5 gm In 300 ml @ 150 mls/hr IV ONCE ONE Rx#:[id number] Output: Output, Urine Amount 0 / 0 350 / 350 0 / 350 Other: Number of Voids 0 Number of Unmeasured Voids 1 1 3 Weight 68.81 kg 69.717 kg 69.717 kg Patient Weight 11/17/23 23:59 Weight 69.717 kg Laboratory Results - last 24 hr 11/16/23 18:46: WBC 6.9, RBC 4.87, Hgb 14.3, Hct 44.6, MCV 91.6, MCH 29.4, MCHC 32.1, RDW 15.1, Plt Count 277, MPV 8.3, Neut % (Auto) 69.7, Lymph % (Auto) 19.5, [place] % (Auto) 4.5, Eos % (Auto) 4.5, Baso % (Auto) 1.7, Neut # (Auto) 4.8, Lymph # (Auto) 1.4, [place] # (Auto) 0.3, Eos # (Auto) 0.3, Baso # (Auto) 0.1, ESR 23 H, Sodium 138, Potassium 3.9, Chloride 106, Carbon Dioxide 28, Anion Gap 7.9, BUN 19, Creatinine 0.90, Estimated Creat Clear 103, Estimated GFR 93, Est GFR ( Amer) 112, Glucose 116 H, Lactate 1.1, Calcium 8.8, Total Bilirubin 0.4, AST 31, ALT 31, Alkaline Phosphatase 75, C-Reactive Protein 23.4 H, Total Protein 7.2, Albumin 3.8, Globulin 3.4 H, Albumin/Globulin Ratio 1.1, Procalcitonin 0.041 11/17/23 05:25: WBC 4.8 D, RBC 4.60, Hgb 13.4 L, Hct 42.5, MCV 92.5, MCH 29.2, MCHC 31.5 L, RDW 15.3, Plt Count 240, MPV 8.0, Neut % (Auto) 67.7, Lymph % (Auto) 21.0, [place] % (Auto) 6.3, Eos % (Auto) 3.5, Baso % (Auto) 1.4, Neut # (Auto) 3.3, Lymph # (Auto) 1.0, [place] # (Auto) 0.3, Eos # (Auto) 0.2, Baso # (Auto) 0.1, Sodium 138, Potassium 3.8, Chloride 109 H, Carbon Dioxide 25, Anion Gap 7.8, BUN 19, Creatinine 1.00, Estimated Creat Clear 95, Estimated GFR 82, Est GFR ( Amer) 99, Glucose 99, Calcium 8.1 L I & O for Labs for Last 24 Hours: Intake & Output 11/14/23 11/15/23 11/16/23 11/17/23 23:59 23:59 23:59 23:59 Intake Total 1110 / 1110 Output Total 0 / 0 350 / 350 Balance 0 / 0 760 / 760 Weight 68.81 kg 69.717 kg Microbiology Reports for the Last 24 Hours: Microbiology 11/16/23 18:40 Ankle,Right Gram Stain - Final 11/16/23 18:40 Ankle,Right Wound Culture - Preliminary Gram Negative Rods Head: Present normocephalic ENT: Present normal exam and normal oropharynx Neck: Present normal inspection and full ROM Respiratory: Present normal respiratory effort Cardiac: Present Reg Rate and Rhythm GI: Present soft and normal bowel sounds Rectal (male): Present deferred (male): Present deferred Extremities: Present normal inspection Skin: Present intact and dry Assessment and Plan *Assessment and plan (1) Dehiscence of operative wound: Status: Acute Qualifiers: Encounter type: initial encounter Qualified Code(s): T81.31XA - Disruption of external operation (surgical) wound, not elsewhere classified, initial encounter Category: Medical Code(s): T81.31XA - Disruption of external operation (surgical) wound, not elsewhere classified, initial encounter (2) History of ankle surgery: Problem Comment: x2 Status: Acute Category: Surgical Code(s): Z98.890 - Other specified postprocedural states Plan #Dehiscence of operative wound ?11/16 taken to OR today. Patient doing well so we will downgrade antibiotics from vancomycin/Zosyn to IV Zosyn. Follow culture results. 11/15 wound culture currently positive for gram-negative rods.. Supportive care. Hyperlipidemia: Continue home management Seasonal allergies: Continue home management Eczema: Continue home management Hypothyroidism: Continue home management PPx: SCDs CODE STATUS full FEN: N.p.o. in preparation for surgery today Disposition: ? Patient will most likely stay in house overnight after surgical procedure. Podiatry will make advised about disposition plans for further disposition plans made by medicine team.
--- NOTE | 2023-11-17 18:31 | P.PNANES_ITS ---
[facility] Disclaimer: The information contained in this section may have been updated after the patient was seen, as this information can be updated by other users. Medical History Hearing difficulty of right ear Ear congestion Cerumen impaction Hyperthyroidism Heart murmur Seasonal allergies Eczema of external ear Bilateral impacted cerumen Bilateral hearing loss due to cerumen impaction Overweight with body mass index (BMI) 25.0-29.9 Postoperative wound dehiscence Postoperative edema Synovial cyst of ankle and foot region Acquired hammertoes of both feet Benign neoplasm of skin of left ankle Left ankle instability Down syndrome HLD (hyperlipidemia) Family history of ischemic heart disease Surgical History History of ankle surgery History of tympanoplasty Hx of tracheostomy History of placement of ear tubes S/P hernia surgery Family History Other Cancer Diabetes Heart disease Hypertension Social History (Updated 11/16/23 @ 21:32 by Beatriz Coleman RN) Smoking Status: Never smoker second hand exposure: No alcohol intake: never counseling provided: none substance use type: denies use current occupational status: disabled Travel in the last 8 weeks: None household members: family housing: house caffeine: Yes [facility] Anesthesia Checklist Patient Identification Patient Identification: Arm Band, Family and Verbal (Name & ) Structural Data Admitted From: Inpatient ([id number]) Planned Operative Procedure/s: I&D RT. foot wound Consent for Planned Operative Procedure(s) Verified: Yes Verified Documents: Surgical Consent and History and Physical NPO Status Verified Time NPO: 10:00 Chart Verification Results Verified: CBC, BMP and ECG Additional verifications Patient : No Anesthesia Reactions: Yes (drowsiness) Hx Blood Transfusions: No Blood Transfusion Reaction: No Cardiovascular Assessment Heart Sounds: S1 & S2 Pulse Rhythm: Irregular Peripheral Edema: No Airway Assessment Mallampati Score:: Class II (s/p Trach 28 yr ago) C-Spine Mobility Assessed: Yes (FROM) TMJ Mobility Assessed: Yes Dentition: Poor Dentition (Most teeth missing. Nothing loose per pt./family.) Neurological Assessment Level of Consciousness: Awake, Alert, Appropriate and Follows Commands Hx Seizures: No Numbness or tingling in extremities: No Anesthesia Plan Anesthesia Risk discussed: Yes Anesthesia Plan: Verified ASA Class: III Anesthesia Type: General
--- NOTE | 2023-11-17 19:00 | PC.NURSE ---
Patient in OR on arrival this shift
[2023-11-17] MEDS: SODIUM CHLORIDE 0.9% IH (19:08)
[2023-11-17] MEDS: GENTAMICIN SULFATE IH (19:08)
--- NOTE | 2023-11-17 19:59 | P.OP_ITS ---
Date of procedure: 11/17/23 Pre-op Diagnosis:: Right ankle open wound S/p right ankle soft tissue mass removal on 10/13/23 Post-op Diagnosis:: Same Procedure performed:: Right ankle wide excisional wound debridement Right ankle incision and drainage Delayed primary closure Application of YOSI drain Surgeon:: Sherri Nuñez DPM [employer] LOOM CONTROL:: Dixie Chaudharykia Anesthesia: GETA Estimated blood loss (mL): 20 Clinical Note:: Patient is a 43-year-old male who was admitted 11/16/2023 for right ankle open wound dehiscence. Patient underwent a right ankle soft tissue mass removal 10/13/2023. New images were discussed with the patient and there was a suspected abscess. White count was within normal limits but ESR and CRP were somewhat elevated. We discussed conservative versus surgical treatment options. We discussed conservative care including continued oral vs IV antibiotics and local wound care for the open wound versus surgical incision and drainage for abscess. Patient/mother understands that they could have wound healing complications including delayed healing and infection. We discussed that if the wound does not heal, it is possible that they may need further debridement. Patient understands if infection spreads into the bone, it may warrant proximal amputation and could result in further loss of digits, loss of partial foot or loss of leg. We discussed the risks and benefits in great detail. Other surgical risks include: prolonged pain and swelling, further infection requiring oral or IV antibiotics, delay in healing of soft tissue or bone, nerve or blood vessel damage, CRPS/RSD, DVT, anesthesia complications, and even . All questions answered. Patient verbalized understanding. Consent obtained. Operative findings:: Right ankle had an open wound over the lateral ankle and prior surgical site which was healed last week. The open wound was approximately 9 x 4 x 2 cm and extended full-thickness through skin subcutaneous tissue into the deep fascia. There was some grayish-brown necrotic looking across the ground material within the wound. I do not believe this was actually necrotic tissue I believe this was Surgicel powder that was inserted at the prior surgery to control bleeding. Once the area was flushed with saline all of that abnormal looking material washed away. 15 blade was used to make stab incision over the area that correlated with the CT scan. Some serous drainage was expressed. No thick creamy purulent malodorous abscess noted. Tissue itself was fibrotic and rubbery with mild synovitis. No ascending cellulitis or sinus tracking noted. Operative note:: On this date and time patient was deemed an appropriate surgical candidate. With informed consent signed, the patient was taken to the operating theater makenna m. The patient was positioned supine. General anesthesia was induced. No tourniquet used. IV Vanco 1g, Cefepime 1g given on the floor. The right lower extremity was prepped and draped in normal sterile fashion. Right ankle wound debridement: Attention was directed to the lateral right ankle over previous soft tissue mass removal site where an open wound was noted. See operative findings for measurements. The wound base was fibrotic with scar tissue noted. There was no periwound maceration. There was mild periwound erythema. The skin edges were debrided with 15' blade, some bleeding noted. The wound was sharply excisionally debrided with 15 blade forceps curette and rongeur full-thickness through skin, subcutaneous tissue into the level of the deep fascia. All nonviable fibrotic scar tissue, nonviable/abnormal appearing tissue/Surgicel and biofilm was debrided. A piece of the tissue was excised and sent as tissue culture. Right ankle I&D: A an incision was made with a 15 blade over the inferior lateral wound correlating to the area on the CT scan. Incision was made full- thickness 2 cm deep into the deep fascia. Serous drainage was noted but no clark creamy thick purulent drainage noted. Deep wound cultures taken. Next wound was flushed with gentamicin irrigation. Wound reexplored and no signs of infection noted. Right ankle delayed primary closure, adjacent soft tissue rearrangement, YOSI drain: Post debridement, there was some bleeding was noted. Granular base was noted. No purulence or signs of infection noted. The dorsal central aspect of the ankle skin had to be rotated plantar and distal in order to cover the defect from the wound debridement. Soft tissue was arranged such that the wound edges were reapproximated. YOSI drain inserted proximally. 2-0 Nylon and 0 Nurolon was used to close skin in an interrupted simple suture fashion. Skin edges were reapproximated. Skin cleansed. Betadine soaked gauze, dry sterile dressing applied to right ankle. The patient tolerated the procedure and anesthesia well, without complications. Materials: 2-0 Nylon, 0 Nurolon, 7 flat YOSI drain Discharge/plan: Maintain dressing clean dry and intact, reinforce as necessary. Continue IV antibiotics: Vanco, cefepime. IntraOp tissue, wound cultures pending. Strict NWB to RLE in fracture boot with walker. Podiatry will plan for dressing change in the morning. If wound appears stable from podiatry standpoint, patient will likely be able to be discharged home tomorrow and I will follow cultures outpatient and change antibiotics as necessary. Patient will need to be discharged home on oral antibiotics: Levo 500mg qd and Doxy 100mg BID x10d for MRSA and Pseudomonas coverage. He will need f/u with Podiatry in one week. Condition: stable Disposition: floor Specimens:: Right ankle wound culture Right ankle tissue culture Complications:: None
--- NOTE | 2023-11-17 20:11 | EXP.ANES.I ---
[facility] Anesthesia Record Part I Anesthesia Record I Intake, IV Amount: 1,000 Hydration: Adequate Estimated blood loss (mL): 100 Urine output (mL): 0 Blood Products used (#): none Blood Pressure: 130/68 SaO2: 94 Pulse Rate: 119 Airway Patency: Patent Respiratory Rate: 16 Temperature: 96.8 F Patient is:: Awake (Talking) and Stable Stable to PACU at:: 19:59
--- NOTE | 2023-11-17 20:32 | PC.NURSE ---
Patient arrived to floor via stretcher from OR at 20:32.
[2023-11-18] VITALS (11 sets, daily range): BP systolic 86–130; BP diastolic 55–92; PULSE 89–100; RESP 14–19; TEMP 36.4–36.7; O2SAT 91–97; BMI 30.2
[2023-11-18] MEDS: 0.9 % SODIUM CHLORIDE 1000ML 1,000 ML 75 ML IV (00:11)
[2023-11-18] MEDS: AMPICILLIN/SULBACTAM 3 GM in 0.9 % SODIUM CHLORIDE 100 ML IV ×2 (00:12→06:08)
--- NOTE | 2023-11-18 05:41 | PC.NURSE ---
Patient has not rested much this shift. Tolerating room air well. YOSI drain in place to right ankle and draining. Dressing C/D/I. Patient has not had any complaints of pain this shift. Mother has remained at bedside throughout the night. Antibiotics administered per MAY. Call light within reach.
[2023-11-18] MEDS: LEVOTHYROXINE 25MCG (0.025MG) TAB 25 MCG PO (06:09)
[2023-11-18 06:33] LABS: Basophils % 0.4 % (0.1-2.0); Hematocrit 40.5 % (42.0-52.0); Hemoglobin 12.6 g/dL (14.1-18.0); Lymphocytes # 0.8 K/mm3 (0.7-4.5); Lymphocytes % 8.2 % (10-50); Mean Corpuscular HGB Conc 31.1 g/dL (31.8-35.4); Mean Corpuscular Hemoglobin 29.6 pg (27.0-31.2); Mean Corpuscular Volume 95.2 fl (80-94); Mean Platelet Volume 7.8 fl (7.4-10.4); Monocytes # 0.3 K/mm3 (0.1-1.0); Monocytes % 2.7 % (1.7-9.3); Neutrophils # 9.2 K/mm3 (1.8-7.8); Neutrophils % 88.8 % (37.0-80.0); Platelet Count 240 K/mm3 (142-424); Red Blood Count 4.25 M/mm3 (4.60-6.20); Red Cell Distribution Width 15.2 % (11.5-17.5); White Blood Count 10.4 K/mm3 (4.8-10.8)
[2023-11-18 06:41] LABS: Albumin Level 3.3 g/dl (3.5-5.0); Chloride 108 mmol/L (98-107); Potassium 4.1 mmoL/L (3.5-5.1); Sodium 136 mmol/L (136-145)
[2023-11-18 06:42] LABS: MANUAL DIFFERENTIAL MANUAL DIFFERENTIAL (MANUAL DIFF)
[2023-11-18 06:43] LABS: Blood Urea Nitrogen 13 mg/dl (9-20); Creatinine Clearance Estimated 119 mL/min (50-200); Estimated Glomerular Filt Rate 106 ml/min (>60); GFR (African American) 128 ML/MIN (>60)
[2023-11-18 06:44] LABS: Alanine Aminotransferase 23 U/L (12-78); Albumin/Globulin Ratio 1.1 (1.1-1.8); Alkaline Phosphatase 71 U/L (38-126); Anion Gap 7.1 mEq/L (5-15); Aspartate Amino Transferase 32 U/L (17-59); Bilirubin,Total 0.5 mg/dl (0.2-1.3); Carbon Dioxide 25 mmol/L (22.0-30.0); Glucose 143 mg/dl (74-100); Total Protein,Serum 6.3 g/dl (6.3-8.2)
[2023-11-18 06:49] LABS: C-Reactive Protein 13.8 mg/L (0-4)
[2023-11-18 06:52] LABS: Erythrocyte Sedimentation Rate 24 mm/hr (0-15)
[2023-11-18 07:08] LABS: Lymphocytes % 12 % (10-50); Monocytes % 2 % (2-9); Neutrophils % 86 % (42-76); Platelet Estimate Normal; RBC Morphology Normal; Total Cells Counted 100
--- NOTE | 2023-11-18 07:10 | P.CONS_ITS ---
History of Present Illness *Admission Date: 11/16/23 *History of present illness: This is a 43-year-old male with past medical history of Down syndrome, hypothyroidism who recently underwent excision of right ankle soft tissue mass on 10/[address] Nuñez. He has had multiple office visits where he has been doing well but mom noticed today that the ankle had an area that was opened. He presents today with without any pain complaints but with open wound. Denies fever. Inflammatory markers elevated in the ER from 23. CRP of 23 all other labs stable. Procalcitonin negative. Dr. Nuñez was consulted and recommends n.p.o. 4 OR tomorrow. He has been covered with vancomycin and Zosyn admitted to the hospitalist service 11/18/23: Patient is doing very well this morning and mom states he rested well and denies any acute pain this morning to right lateral foot. Tolerated breakfast without any N/V and is wanting to go home today. [facility] Disclaimer: The information contained in this section may have been updated after the patient was seen, as this information can be updated by other users. Medical History Hearing difficulty of right ear Ear congestion Cerumen impaction Hyperthyroidism Heart murmur Seasonal allergies Eczema of external ear Bilateral impacted cerumen Bilateral hearing loss due to cerumen impaction Overweight with body mass index (BMI) 25.0-29.9 Postoperative wound dehiscence Postoperative edema Synovial cyst of ankle and foot region Acquired hammertoes of both feet Benign neoplasm of skin of left ankle Left ankle instability Down syndrome HLD (hyperlipidemia) Family history of ischemic heart disease Surgical History History of ankle surgery History of tympanoplasty Hx of tracheostomy History of placement of ear tubes S/P hernia surgery Family History Other Cancer Diabetes Heart disease Hypertension Social History (Updated 11/16/23 @ 21:32 by Beatriz Coleman RN) Smoking Status: Never smoker second hand exposure: No alcohol intake: never counseling provided: none substance use type: denies use current occupational status: disabled Travel in the last 8 weeks: None household members: family housing: house caffeine: Yes Meds Home Medications and Allergies Home Medications ?Medication ?Instructions ?Recorded ?Confirmed ?Type fluticasone propionate 50 1 spray intranasal DAILY #16 grams 11/19/22 11/16/23 Rx mcg/actuation nasal spray,suspension (Flonase Allergy Relief) cetirizine 10 mg tablet (Allergy 10 mg PO DAILY PRN Allergy Symptoms 10/11/23 11/16/23 History Relief (cetirizine)) polyethylene glycol 3350 17 17 g PO WEEKLY 10/11/23 11/16/23 History gram/dose oral powder (Miralax) levothyroxine 25 mcg tablet 25 mcg PO DAILY 11/16/23 11/16/23 History New Prescriptions to Start Prescriptions: Allergies Allergy/AdvReac Type Severity Reaction Status Date / Time No Known Allergies Allergy Verified 11/11/23 09:38 Exam (Inpt) Vital signs and Labs for Last 24 Hours: Temp Pulse Resp BP Pulse Ox O2 Del Method 98.0 F 100 H 14 86/56 L 96 Room Air 11/18/23 04:00 11/18/23 05:59 11/18/23 04:00 11/18/23 04:00 11/18/23 04:00 11/18/23 06:49 Laboratory Results - last 24 hr 11/17/23 05:25: WBC 4.8 D, RBC 4.60, Hgb 13.4 L, Hct 42.5, MCV 92.5, MCH 29.2, MCHC 31.5 L, RDW 15.3, Plt Count 240, MPV 8.0, Neut % (Auto) 67.7, Lymph % (Auto) 21.0, [place] % (Auto) 6.3, Eos % (Auto) 3.5, Baso % (Auto) 1.4, Neut # (Auto) 3.3, Lymph # (Auto) 1.0, [place] # (Auto) 0.3, Eos # (Auto) 0.2, Baso # (Auto) 0.1 11/18/23 05:50: WBC 10.4 D, RBC 4.25 L, Hgb 12.6 L, Hct 40.5 L, MCV 95.2 H, MCH 29.6, MCHC 31.1 L, RDW 15.2, Plt Count 240, MPV 7.8, Neut % (Auto) 88.8 H, Lymph % (Auto) 8.2 L, [place] % (Auto) 2.7, Eos % (Auto) 0.0 L, Baso % (Auto) 0.4, Neut # (Auto) 9.2 H, Lymph # (Auto) 0.8, [place] # (Auto) 0.3, Eos # (Auto) 0.0, Baso # (Auto) 0.0, Total Counted 100, Neutrophils % (Manual) 86 H, Lymphocytes % (Manual) 12, Monocytes % (Manual) 2, Platelet Estimate Normal, RBC Morphology Normal, ESR 24 H, Sodium 136, Potassium 4.1, Chloride 108 H, Carbon Dioxide 25, Anion Gap 7.1, BUN 13 D, Creatinine 0.80, Estimated Creat Clear 119, Estimated GFR 106, Est GFR ( Amer) 128 D, Glucose 143 H, Calcium 8.0 L, Total Bilirubin 0.5, AST 32, ALT 23 D, Alkaline Phosphatase 71, C-Reactive Protein 13.8 H D, Total Protein 6.3, Albumin 3.3 L D, Globulin 3.0, Albumin/Globulin Ratio 1.1 I & O for Labs for Last 24 Hours: Intake & Output 11/15/23 11/16/23 11/17/23 11/18/23 23:59 23:59 23:59 23:59 Intake Total 2110 / 2110 641 / 641 Output Total 0 / 0 850 / 850 Balance 0 / 0 1260 / 1260 641 / 641 Weight 151 lb 11.2 oz 153 lb 11.2 oz 153 lb 11.195 oz Microbiology Reports for the Last 24 Hours: Microbiology 11/16/23 18:46 Blood Blood Culture - Preliminary NO GROWTH AFTER 24 HOURS 11/16/23 18:46 Blood Blood Culture - Preliminary NO GROWTH AFTER 24 HOURS 11/16/23 18:40 Ankle,Right Gram Stain - Final 11/16/23 18:40 Ankle,Right Wound Culture - Preliminary Gram Negative Rods Constitutional: Present no acute distress and cooperative Head: Present normocephalic Eye: Present as per HPI Neck: Present normal inspection, full ROM and trachea midline Respiratory: Present normal respiratory effort and able to speak in complete sentences Cardiac: Present posterior tibial pulses present and pedal pulses present Comments:: deferred Rectal (male): Present deferred (male): Present deferred Extremities: Present normal capillary refill; Absent calf tenderness Skin: Present erythema (improving today) and wounds (Right ankle wound I&D, delayed primary closure, YOSI drain; stable ) Neuro: Present Motor Function Intact, Sensory Function Intact, oriented x 3, tone normal and moves all extremities Ankle: right: erythema (improving), right: swelling, right: tenderness and right: wound (Right lateral ankle I&D, sutures intact, YOSI drain) Feet/Toes: right: wound (R Lat. ankle wound, S/P I&D, sutures and YOSI drain intact) and bilateral: nail abnormalities Inspection: Present infection Pulses: L dorsalis pedis pulse: normal, R dorsalis pedis pulse: normal, L posterior tibial pulse: normal and R posterior tibial pulse: normal CFT: normal: CFT Results Labs 11/18/23 05:50 11/18/23 05:50 Labs: Abnormal lab results 11/17/23 11/18/23 Range/Units 05:25 05:50 RBC 4.25 L (4.60-6.20) M/mm3 Hgb 13.4 L 12.6 L (14.1-18.0) g/dL Hct 40.5 L (42.0-52.0) % MCV 95.2 H (80-94) fl MCHC 31.5 L 31.1 L (31.8-35.4) g/dL Neut % (Auto) 88.8 H (37.0-80.0) % Lymph % (Auto) 8.2 L (10-50) % Eos % (Auto) 0.0 L (0.1-12.0) % Neut # (Auto) 9.2 H (1.8-7.8) K/mm3 Neutrophils % (Manual) 86 H (42-76) % ESR 24 H (0-15) mm/hr Chloride 108 H (98-107) mmol/L Glucose 143 H (74-100) mg/dl Calcium 8.0 L (8.4-10.2) mg/dl C-Reactive Protein 13.8 H D (0-4) mg/L Albumin 3.3 L D (3.5-5.0) g/dl H & H 11/16/23 11/17/23 11/18/23 Range/Units 18:46 05:25 05:50 Hgb 14.3 13.4 L 12.6 L (14.1-18.0) g/dL Hct 44.6 42.5 40.5 L (42.0-52.0) % All other labs normal. Assessment and Plan *Assessment and plan (1) Dehiscence of operative wound: Status: Acute Qualifiers: Encounter type: initial encounter Qualified Code(s): T81.31XA - Disruption of external operation (surgical) wound, not elsewhere classified, initial encounter Category: Medical Code(s): T81.31XA - Disruption of external operation (surgical) wound, not elsewhere classified, initial encounter (2) History of ankle surgery: Problem Comment: x2 Status: Acute Category: Surgical Code(s): Z98.890 - Other specified postprocedural states (3) Status post foot surgery: Status: Acute Category: Surgical Code(s): Z98.890 - Other specified postprocedural states (4) Acquired pes planus of both feet: Status: Chronic Category: Medical Code(s): M21.41 - Flat foot [pes planus] (acquired), right foot; M21.42 - Flat foot [pes planus] (acquired), left foot (5) Keratosis: Status: Chronic Category: Medical Code(s): L57.0 - Actinic keratosis (6) Down syndrome: Status: Chronic Category: Medical Code(s): Q90.9 - Down syndrome, unspecified (7) Left ankle instability: Status: Acute Category: Medical Code(s): M25.372 - Other instability, left ankle (8) Postoperative edema: Status: Acute Category: Medical Code(s): R60.9 - Edema, unspecified (9) Postoperative wound dehiscence: Status: Acute Qualifiers: Encounter type: subsequent encounter Qualified Code(s): T81.31XD - Disruption of external operation (surgical) wound, not elsewhere classified, subsequent encounter Category: Medical Code(s): T81.31XA - Disruption of external operation (surgical) wound, not elsewhere classified, initial encounter (10) Synovial cyst of ankle and foot region: Status: Acute Category: Medical Code(s): M71.379 - Other bursal cyst, unspecified ankle and foot (11) Edema of both lower extremities: Status: Acute Category: Medical Code(s): R60.0 - Localized edema (12) Chronic pain of both ankles: Status: Acute Category: Medical Code(s): M25.571 - Pain in right ankle and joints of right foot; M25.572 - Pain in left ankle and joints of left foot; G89.29 - Other chronic pain (13) Benign neoplasm of skin of right ankle: Status: Acute Category: Medical Code(s): D23.71 - Other benign neoplasm of skin of right lower limb, including hip Plan 11/18/23: Surgery, 08/07/20: s/p left ankle soft tissue mass excision, ankle synovectomy, application of graft ([place] graft x 1), application of YOSI drain Surgery, 10/13/23: s/p Right ankle excision of soft tissue mass/tumor, ankle arthrotomy with synovectomy Intraop Specimens: Right ankle soft tissue mass: Benign fibromuscular tissue with disordered collagen proliferation. Negative for malignancy and significant acute inflammation. Right ankle synovium: Benign fibromuscular tissue with disordered collagen and the proliferation. Negative for malignancy and significant acute inflammation. 11/18/2023 labs, WBC 10.4 ESR 24, glucose 143, CRP 13.8 -labs stable, crp improving cpr. 11/16/2023 CT right foot W CON, comparison :CT ANKLE RT W CON 11/16/2023, FINDINGS: Bones/joints: Unremarkable osseous structures for acute findings. Anatomically aligned osseous structures. Normal bony density. Soft tissues: Poorly defined, complex soft tissue fluid collection along right lateral mid and hindfoot within open wound and corresponding to clinical findings. Collection measures 1.4 x 4.9 x 3.8 cm. No separate soft tissue air. Extensive soft tissue edema adjacent to fluid collection and open wound. IMPRESSION: 1. Complex soft tissue fluid collection/developing abscess along open wound and regional edema without evidence for obvious necrotizing fasciitis. 2. No acute osseous findings by CT criteria. S/P surgery 11/17/23-right ankle wide excisional wound debridement, right ankle I&D, delayed primary closure, application of YOSI drain Discharge/plan: Maintain dressing clean dry and intact, reinforce as necessary. Continue IV antibiotics: Vanco, cefepime. Intra Op tissue, wound cultures pending. Strict NWB to RLE in fracture boot with walker. Skin cleansed. Xeroform, Betadine soaked gauze, dry sterile, jose wrap dressing applied to right ankle. Wound appears stable from podiatry standpoint, patient should be able to be discharged home today at the hospitalist discretion. I will follow cultures outpatient and change antibiotics as necessary. Patient will need to be discharged home on oral antibiotics: Levo 500mg qd and Doxy 100mg BID x10d for MRSA and Pseudomonas coverage. He will need f/u with Podiatry in one week. All orders per Dr. Nuñez Specimens:: Pending Right ankle wound culture Right ankle tissue culture
--- NOTE | 2023-11-18 07:16 | EXP.ANES.II ---
[facility] Anesthesia Record Part II Anesthesia Record Part II Discharge Time: 20:24 Destination: Medical Surgical Department PACU nurse assessment reviewed?: Yes Patient Condition:: Good Anesthesia Complications:: None Swallowing reflex intact?: Yes Airway Patency: Patent Cyanosis?: No Blood Pressure: 130/92 SaO2: 96 Respiratory Rate: 16 Pulse Rate: 93 Temperature: 97.5 F Mental Status: Alert & Oriented Pain level:: 0 Nausea and/or vomitting:: None Intake, IV Amount: 1,000 Hydration: Adequate
--- NOTE | 2023-11-18 10:29 | P.DS_ITS ---
General Admission date:: 11/16/23 Discharge date: 11/18/23 HPI HPI HPI: This is a 43-year-old male with past medical history of Down syndrome, hypothyroidism who recently underwent excision of right ankle soft tissue mass on 10/[address] Nuñez. He has had multiple office visits where he has been doing well but mom noticed today that the ankle had an area that was opened. He presents today with without any pain complaints but with open wound. Denies fever. Inflammatory markers elevated in the ER from 23. CRP of 23 all other labs stable. Procalcitonin negative. Dr. Nuñez was consulted and recommends n.p.o. 4 OR tomorrow. He has been covered with vancomycin and Zosyn admitted to the hospitalist service 11/18/23: Patient is doing very well this morning and mom states he rested well and denies any acute pain this morning to right lateral foot. Tolerated breakfast without any N/V and is wanting to go home today. Hospital Course Hospital Course Hospital Course: Patient admitted to hospital after wound dehiscence, and received debridement procedure by podiatry 11/17/2023. Patient maintained on IV vancomycin/cefepime 11/15 to 11/16. Patient transition to IV Unasyn 11/16 and given gentamicin x 1. Patient's wound culture grew back Enterobacter, and patient transitioned back to IV cefepime 11/18/2023. Patient doing well postsurgical, and ultimately discharged home on doxycycline/Levaquin therapy. Patient advised to follow-up with PCP and podiatry after hospital disposition. Exam Data for Last 24 hours Vital signs and Labs for Last 24 Hours: Temp Pulse Resp BP Pulse Ox O2 Del Method 97.9 F 100 H 18 101/64 L 97 Room Air 11/18/23 07:31 11/18/23 08:00 11/18/23 07:31 11/18/23 07:31 11/18/23 07:31 11/18/23 07:31 Laboratory Results - last 24 hr 11/18/23 05:50: WBC 10.4 D, RBC 4.25 L, Hgb 12.6 L, Hct 40.5 L, MCV 95.2 H, MCH 29.6, MCHC 31.1 L, RDW 15.2, Plt Count 240, MPV 7.8, Neut % (Auto) 88.8 H, Lymph % (Auto) 8.2 L, [place] % (Auto) 2.7, Eos % (Auto) 0.0 L, Baso % (Auto) 0.4, Neut # (Auto) 9.2 H, Lymph # (Auto) 0.8, [place]oughton # (Auto) 0.3, Eos # (Auto) 0.0, Baso # (Auto) 0.0, Total Counted 100, Neutrophils % (Manual) 86 H, Lymphocytes % (Manual) 12, Monocytes % (Manual) 2, Platelet Estimate Normal, RBC Morphology Normal, ESR 24 H, Sodium 136, Potassium 4.1, Chloride 108 H, Carbon Dioxide 25, Anion Gap 7.1, BUN 13 D, Creatinine 0.80, Estimated Creat Clear 119, Estimated GFR 106, Est GFR ( Amer) 128 D, Glucose 143 H, Calcium 8.0 L, Total Bilirubin 0.5, AST 32, ALT 23 D, Alkaline Phosphatase 71, C-Reactive Protein 13.8 H D, Total Protein 6.3, Albumin 3.3 L D, Globulin 3.0, Albumin/Globulin Ratio 1.1 I & O for Last 24 hours: Intake & Output 11/15/23 11/16/23 11/17/23 11/18/23 23:59 23:59 23:59 23:59 Intake Total 2110 / 2110 218 / 2181 Output Total 0 / 0 850 / 850 0 / 0 Balance 0 / 0 1260 / 1260 218 / 2181 Weight 68.81 kg 69.717 kg 69.717 kg Microbiology Reports for the Last 24 Hours: Microbiology 11/16/23 18:40 Ankle,Right Gram Stain - Final 11/16/23 18:40 Ankle,Right Wound Culture - Final Enterobacter cloacae 11/16/23 18:46 Blood Blood Culture - Preliminary NO GROWTH AFTER 24 HOURS 11/16/23 18:46 Blood Blood Culture - Preliminary NO GROWTH AFTER 24 HOURS *Routine HEENT Exam Head: Present normocephalic Eye: Present EOMI and normal accommodation ENT: Present mucous membranes moist and oropharynx clear *Routine Neck Exam Neck: Present supple and full ROM *Routine Respiratory Exam Respiratory: Present CTA bilaterally *Routine Cardiovascular Exam Cardiovascular: Present RRR, Normal S1 and Normal S2 *Routine Abdominal Exam Abdominal: Present soft and normoactive bowel sounds *Routine Extremities Exam Extremities: Present full ROM and normal capillary refill *Routine Skin Exam Skin: Present intact and dry Results Data Completed and Pending Labs on day of discharge: Labs from last 24 hours 11/18/23 05:50 WBC 10.4 D RBC 4.25 L Hgb 12.6 L Hct 40.5 L MCV 95.2 H MCH 29.6 MCHC 31.1 L RDW 15.2 Plt Count 240 MPV 7.8 Neut % (Auto) 88.8 H Lymph % (Auto) 8.2 L Houghton % (Auto) 2.7 Eos % (Auto) 0.0 L Baso % (Auto) 0.4 Neut # (Auto) 9.2 H Lymph # (Auto) 0.8 Houghton # (Auto) 0.3 Eos # (Auto) 0.0 Baso # (Auto) 0.0 Total Counted 100 Neutrophils % (Manual) 86 H Lymphocytes % (Manual) 12 Monocytes % (Manual) 2 Platelet Estimate Normal RBC Morphology Normal ESR 24 H Sodium 136 Potassium 4.1 Chloride 108 H Carbon Dioxide 25 Anion Gap 7.1 BUN 13 D Creatinine 0.80 Estimated Creat Clear 119 Estimated GFR 106 Est GFR ( Amer) 128 D Glucose 143 H Calcium 8.0 L Total Bilirubin 0.5 AST 32 ALT 23 D Alkaline Phosphatase 71 C-Reactive Protein 13.8 H D Total Protein 6.3 Albumin 3.3 L D Globulin 3.0 Albumin/Globulin Ratio 1.1 Preliminary micro results at discharge 11/16/23 18:46 Blood Culture - Preliminary Blood NO GROWTH AFTER 24 HOURS 11/16/23 18:46 Blood Culture - Preliminary Blood NO GROWTH AFTER 24 HOURS DS: Diagnosis Discharge Diagnosis (1) Dehiscence of operative wound: Status: Acute Code(s): T81.31XA - Disruption of external operation (surgical) wound, not elsewhere classified, initial encounter Qualifiers: Encounter type: initial encounter Qualified Code(s): T81.31XA - Disruption of external operation (surgical) wound, not elsewhere classified, initial encounter (2) History of ankle surgery: Status: Acute Code(s): Z98.890 - Other specified postprocedural states Problem details: x2 (3) Status post foot surgery: Status: Acute Code(s): Z98.890 - Other specified postprocedural states (4) Acquired pes planus of both feet: Status: Chronic Code(s): M21.41 - Flat foot [pes planus] (acquired), right foot; M21.42 - Flat foot [pes planus] (acquired), left foot (5) Keratosis: Status: Chronic Code(s): L57.0 - Actinic keratosis (6) Down syndrome: Status: Chronic Code(s): Q90.9 - Down syndrome, unspecified (7) Left ankle instability: Status: Acute Code(s): M25.372 - Other instability, left ankle (8) Postoperative edema: Status: Acute Code(s): R60.9 - Edema, unspecified (9) Postoperative wound dehiscence: Status: Acute Code(s): T81.31XA - Disruption of external operation (surgical) wound, not elsewhere classified, initial encounter Qualifiers: Encounter type: subsequent encounter Qualified Code(s): T81.31XD - Disruption of external operation (surgical) wound, not elsewhere classified, subsequent encounter (10) Synovial cyst of ankle and foot region: Status: Acute Code(s): M71.379 - Other bursal cyst, unspecified ankle and foot (11) Edema of both lower extremities: Status: Acute Code(s): R60.0 - Localized edema (12) Chronic pain of both ankles: Status: Acute Code(s): M25.571 - Pain in right ankle and joints of right foot; M25.572 - Pain in left ankle and joints of left foot; G89.29 - Other chronic pain (13) Benign neoplasm of skin of right ankle: Status: Acute Code(s): D23.71 - Other benign neoplasm of skin of right lower limb, including hip Meds Home Medications and Allergies Home Medications ?Medication ?Instructions ?Recorded ?Confirmed ?Type fluticasone propionate 50 1 spray intranasal DAILY #16 grams 11/19/22 11/16/23 Rx mcg/actuation nasal spray,suspension (Flonase Allergy Relief) cetirizine 10 mg tablet (Allergy 10 mg PO DAILY PRN Allergy Symptoms 10/11/23 11/16/23 History Relief (cetirizine)) polyethylene glycol 3350 17 17 g PO WEEKLY 10/11/23 11/16/23 History gram/dose oral powder (Miralax) levothyroxine 25 mcg tablet 25 mcg PO DAILY 11/16/23 11/16/23 History doxycycline hyclate 100 mg capsule 100 mg PO BID #20 caps 11/18/23 Rx levofloxacin 750 mg tablet 750 mg PO DAILY #10 tabs 11/18/23 Rx New Prescriptions to Start Prescriptions: doxycycline hyclate [facility] levofloxacin [facility] Allergies Allergy/AdvReac Type Severity Reaction Status Date / Time No Known Allergies Allergy Verified 11/11/23 09:38 Discharge Plan Disposition Patient Disposition: Home, Self-Care Condition: Fair Follow up Plan Follow up with: Silvio Amezcua DO [Primary Care Provider] - 11/25/23 3:30 pm Sherri Nuñez DPM [Staff Physician] - 11/25/23 9:30 am Prescriptions/Medication Reconciliation: New levofloxacin 750 mg tablet 750 mg PO DAILY Qty: 10 0RF doxycycline hyclate 100 mg capsule 100 mg PO BID Qty: 20 0RF No Action fluticasone propionate [Flonase Allergy Relief] 50 mcg/actuation spray,suspension 1 spray intranasal DAILY Qty: 16 2RF Rx Instructions: administer into each nostril levothyroxine 25 mcg tablet 25 mcg PO DAILY polyethylene glycol 3350 [Miralax] 17 gram/dose Powder 17 g PO WEEKLY cetirizine [Allergy Relief (cetirizine)] 10 mg tablet 10 mg PO DAILY PRN (Reason: Allergy Symptoms) Rx Instructions: TAKE 1 TABLET BY MOUTH ONCE DAILY NEEDED FOR ALLERGY SYMPTOMS Problem Reconciliation Problems Reviewed?: Yes Patient Discharge Instructions ACTIVITY: Continue current activity DIET: continue same diet Patient Instructions: Wound Dehiscence Print Language: Cuban Providers Primary Care Provider: Silvio Amezcua Admit Provider: Victor Hugo Oconnor Attending Provider: Victor Hugo Oconnor
[2023-11-18] MEDS: FLUTICASONE PROP 50MCG NASAL SPRAY 16GM 1 SPRAY NS (10:57)
[2023-11-18] MEDS: CEFEPIME HCL 1 GM in 0.9 % SODIUM CHLORIDE 50 ML IV (10:58)
[2023-11-18] MEDS: LORATADINE 10MG TABLET 10 MG PO (10:58)
--- NOTE | 2023-11-19 13:26 | CARE MANAGER ---
Contacted patient's mom who states he is doing very well. Denies questions or concerns, is aware of follow up appointments, and has new medications. FREDDY Martin
== END 2023-11-18 16:10 | disposition home or self-care (01) ==
LOC: ER 20:14 → 2ND 20:22
PROVIDERS: Nurse Practitioner Acute Care; Physician Assistant; Podiatrist; Admitting Provider Internal Medicine; Emergency Provider Emergency Medicine; PCP Internal Medicine; Visit Provider Internal Medicine
PROC: (CPT 11042; principal; 2023-11-17 15:30)
DX: T81.31XA Disruption of external operation (surgical) wound, not elsewhere classified, initial encounter (principal); M21.41 Flat foot [pes planus] (acquired), right foot; M21.42 Flat foot [pes planus] (acquired), left foot; Q90.9 Down syndrome, unspecified; M25.372 Other instability, left ankle; M25.571 Pain in right ankle and joints of right foot; M25.572 Pain in left ankle and joints of left foot; D23.71 Other benign neoplasm of skin of right lower limb, including hip
CPT/HCPCS: 11042; 11045; 27603; 36415; 73701; 80048; 80053; 83605; 84145; 85007; 85025; 85027; 85651; 86140; 87040; 87070; 87075; 87077; 87186; 87205; 99285; G0378; J0131; J0295; J0692; J1100; J1580; J1885; J2250; J2405; J2543; J3010; J3370; J7030; J7050; J7120; Q9967

== ENCOUNTER 2023-12-02 11:32 | Outpatient (CLI) | payer MEDICAID, SELFPAY ==
[2023-12-02 12:08] LABS: Basophils # 0.1 K/mm3 (0-0.2); Basophils % 1.1 % (0.1-2.0); Eosinophils # 0.1 K/mm3 (0.0-0.4); Hematocrit 46.1 % (42.0-52.0); Hemoglobin 14.2 g/dL (14.1-18.0); Lymphocytes # 1.4 K/mm3 (0.7-4.5); Lymphocytes % 19.7 % (10-50); Mean Corpuscular HGB Conc 30.9 g/dL (31.8-35.4); Mean Corpuscular Hemoglobin 29.6 pg (27.0-31.2); Mean Corpuscular Volume 95.9 fl (80-94); Mean Platelet Volume 7.7 fl (7.4-10.4); Monocytes # 0.3 K/mm3 (0.1-1.0); Monocytes % 4.2 % (1.7-9.3); Neutrophils # 5.2 K/mm3 (1.8-7.8); Platelet Count 300 K/mm3 (142-424); Red Blood Count 4.81 M/mm3 (4.60-6.20); Red Cell Distribution Width 15.4 % (11.5-17.5)
[2023-12-02 12:38] LABS: Alanine Aminotransferase 26 U/L (12-78); Albumin Level 3.9 g/dl (3.5-5.0); Albumin/Globulin Ratio 1.2 (1.1-1.8); Alkaline Phosphatase 78 U/L (38-126); Anion Gap 8.1 mEq/L (5-15); Aspartate Amino Transferase 28 U/L (17-59); Bilirubin,Total 0.5 mg/dl (0.2-1.3); Blood Urea Nitrogen 15 mg/dl (9-20); Carbon Dioxide 29 mmol/L (22.0-30.0); Chloride 106 mmol/L (98-107); Estimated Glomerular Filt Rate 93 ml/min (>60); GFR (African American) 112 ML/MIN (>60); Globulin 3.3 g/dL (1.3-3.2); Glucose 110 mg/dl (74-100); Potassium 4.1 mmoL/L (3.5-5.1); Sodium 139 mmol/L (136-145); Total Protein,Serum 7.2 g/dl (6.3-8.2)
[2023-12-02 12:43] LABS: C-Reactive Protein 5.9 mg/L (0-4)
[2023-12-02 12:51] LABS: Erythrocyte Sedimentation Rate 12 mm/hr (0-15)
== END 2023-12-02 23:59 | disposition home or self-care (01) ==
LOC: LAB 11:33
PROVIDERS: PCP Internal Medicine; Visit Provider Podiatrist
DX: Z98.890 Other specified postprocedural states (principal); R60.0 Localized edema
CPT/HCPCS: 36415; 80053; 85025; 85651; 86140

== ENCOUNTER 2023-12-16 16:13 | Outpatient (CLI) | payer MEDICAID, SELFPAY | END 2023-12-16 23:59 | disposition home or self-care (01) | LOC: LAB.DROPOF 16:13 | PROVIDERS: PCP Podiatrist; Visit Provider Podiatrist | DX: Z98.890 Other specified postprocedural states (principal); T81.31XD Disruption of external operation (surgical) wound, not elsewhere classified, subsequent encounter; S91.309A Unspecified open wound, unspecified foot, initial encounter | CPT/HCPCS: 87070; 87205 ==

== ENCOUNTER 2024-01-03 09:44 | Outpatient (RCR) | payer MEDICAID, SELFPAY ==
--- NOTE | 2024-01-03 15:59 | HMH.PTOPWND ---
Rehab Outpt Wound Evaluation Rehab OP Wound Evaluation Start: 01/03/24 15:47 Freq: Status: Active Protocol: Document 01/03/24 15:47 ESTRADALaceyVANESSA (Rec: 01/03/24 15:59 PHORVANESSA [id number]) E-signed By Nando Zepeda, PT Subjective/History History History This is the initial PT eval for Иван Hernandez, 43 yowm who presents with R lateral ankle post-surgical wound complicated by poor wound healing and wound dehiscence. He had initial surgery performed 10/13/23 with unexpectedly poor wound healing and post-op infection. Second surgery was performed 11/17/23 with [address] remaining in place after this procedure. He is able to maintain appropriate NWB of the R LE well. His PMH includes Down Syndrome and hearing decreased. Subjective Subjective Pt has no c/o pain or tenderness to palpation at this time. Minimal harpreet-wound edema noted with palpation. Sutures remain in place. Incision appears almost completely closed at this time and only superior area of open wound is measured. New diagnosis of cancer in past 12 No months? Wound Eval Wound Right Upper Lateral Ankle Wound Type Incision Is This a Chronic Wound Yes Wound Length (cm) 1.0 Wound Width (cm) 1.0 Wound Depth (cm) 0.1 Wound Bed Appearance Beefy Red Percentage Granulated (%) 99 Wound Margins Description Well Defined Surrounding Tissue Appearance [place] Drainage Description Serosanguineous Drainage Amount Small Drainage Odor No Odor Primary Dressing collagen Comment puracol Wound Secondary Dressing Type Silver Dressing,Composite, Absorbant Pad,Elastic Bandage Comment optifoam thin, ABD pad Wound Debridement Method Forceps,Gauze,Mechanical Wound Debridement Amount of Tissue Minimal Removed Dressing Change Patient Tolerance Tolerated Well Wound Problems/Impairments Impairments Problems/Impairmments Impaired Gait Pattern,Impaired Walking,Impaired Standing, Impaired Stair Climbing,Wound Care Needs,Impaired Self Care/ Self Management Prognosis Rehab Potential Good Comment Skilled therapy is indicated to reduce overall wound surface area and return pt to PLOF. Clinical Impression Consistent with Diagnosis Yes Short Term Goals Number of Weeks 2 Decrease Wound Area Yes: by 25% Bundle Packer Goals Number of Weeks 4 Decrease Wound Area Yes: by 75% Patient to be Ind w/ HEP Yes Patient to be Ind w/ Home Wound Care/ Yes: Family to change Dressing Changes dressings Outpatient Therapy Plan of Care Treatment Plan May Include Therapeutic Exercise Including Home Yes Exercise Program Manual Therapy Techniques Yes Neuromuscular Re-education Yes Therapeutic Activities to Return to Yes Previous Functional/Work Level ADL/Self Care Education Yes Orthotics/Bracing/Splinting Yes Manual Lymphatic Drainage Yes Wound Care Yes Eval/Re-Eval Yes Frequency Times per week 1 Duration Number of Weeks 4 Addendums This patient is a candidate for social No or vocational rehab? Patient/Guardian verbally acknowledges Yes understanding of treatment program and consents to further treatment? Patient/Guardian verbally acknowledges Yes understanding of diagnosis, prognosis and goals for treatment? Eval Complexity PT Charges 51278 - High Complexity PHYSICIAN CERTIFICATION: I certify the specified therapy services for Иван Hernandez are required, authorized, and reviewed every 30 days.
== END 2024-01-03 09:45 | disposition home or self-care (01) ==
LOC: PT 09:44
PROVIDERS: Visit Provider Podiatrist
DX: Z98.890 Other specified postprocedural states (principal); T81.31XA Disruption of external operation (surgical) wound, not elsewhere classified, initial encounter
CPT/HCPCS: 97163

== ENCOUNTER 2024-02-01 09:57 | Outpatient (POV) | payer MEDICAID, SELFPAY | END 2024-02-01 23:59 | disposition home or self-care (01) | LOC: SC 09:57 | PROVIDERS: PCP Internal Medicine; Visit Provider Specialist/Technologist | DX: Z00.00 Encounter for general adult medical examination without abnormal findings (principal) ==

== ENCOUNTER 2024-03-13 11:00 | Outpatient (CLI) | payer MEDICAID, SELFPAY ==
[2024-03-13 19:35] LABS: Thyroid Stimulating Hormone 1.02 uIU/mL (0.465-4.68)
[2024-03-13 20:03] LABS: Hemoglobin A1C 5.6 % (4.0-6.0)
== END 2024-03-13 23:59 | disposition home or self-care (01) ==
LOC: LAB.DROPOF 03-14 12:52
PROVIDERS: PCP Internal Medicine; Visit Provider Internal Medicine
DX: E03.9 Hypothyroidism, unspecified (principal)
CPT/HCPCS: 83036; 84443

== ENCOUNTER 2024-09-13 16:23 | Outpatient (CLI) | payer MEDICAID, SELFPAY ==
[2024-09-13 12:22] LABS: Basophils # 0.1 K/mm3 (0-0.2); Basophils % 1.3 % (0.1-2.0); Eosinophils % 0.9 % (0.1-12.0); Hematocrit 47.3 % (42.0-52.0); Hemoglobin 15.1 g/dL (14.1-18.0); Immature Granulocytes # 0.03 10^3uL; Immature Granulocytes % 0.7 %; Lymphocytes % 21.3 % (10-50); Mean Corpuscular HGB Conc 31.9 g/dL (31.8-35.4); Mean Corpuscular Hemoglobin 28.4 pg (27.0-31.2); Mean Corpuscular Volume 88.9 fl (80-94); Mean Platelet Volume 10.1 fl (7.4-10.4); Monocytes # 0.4 K/mm3 (0.1-1.0); Monocytes % 7.8 % (1.7-9.3); Neutrophils # 3.1 K/mm3 (1.8-7.8); Nucleated Red Blood Cells # 0 10^3/uL; Nucleated Red Blood Cells % 0 %; Platelet Count 252 K/mm3 (142-424); Red Blood Count 5.32 M/mm3 (4.60-6.20); Red Cell Distribution Width 14.4 % (11.5-17.5); Red Cell Distribution Width-SD 46.5 fL; White Blood Count 4.6 K/mm3 (4.8-10.8)
[2024-09-13 12:44] LABS: Chloride 104 mmol/L (98-107); Potassium 4.6 mmoL/L (3.5-5.1); Sodium 139 mmol/L (136-145)
[2024-09-13 12:47] LABS: Alanine Aminotransferase 27 U/L (12-78); Albumin/Globulin Ratio 1.3 (1.1-1.8); Alkaline Phosphatase 71 U/L (38-126); Anion Gap 8.6 mEq/L (5-15); Aspartate Amino Transferase 32 U/L (17-59); Bilirubin,Total 0.5 mg/dl (0.2-1.3); Blood Urea Nitrogen 16 mg/dl (9-20); Calcium 8.6 mg/dl (8.4-10.2); Carbon Dioxide 31 mmol/L (22.0-30.0); Cholesterol 151 mg/dl (140-200); Estimated Glomerular Filt Rate 92 ml/min (>60); GFR (African American) 111 ML/MIN (>60); Globulin 3.1 g/dL (1.3-3.2); Glucose 84 mg/dl (74-100); HDL Cholesterol 35 mg/dl (40-60); Total Protein,Serum 7.1 g/dl (6.3-8.2); Triglycerides 98 mg/dl (30-150); VLDL Cholesterol 20 mg/dL (0-40)
[2024-09-13 12:48] LABS: Chol/HDL Ratio 4.3 (1-3.5)
[2024-09-13 12:59] LABS: Direct LDL Cholesterol 75.16 mg/dL (100-129)
[2024-09-13 13:18] LABS: Thyroid Stimulating Hormone 2.71 uIU/mL (0.465-4.68)
[2024-09-13 13:31] LABS: Hemoglobin A1C 5.6 % (4.0-6.0)
--- OUTSIDE RECORDS SUMMARY | 2024-09-13 16:25 | XMS_ITS | Clinical Summary ---
Author Organization Healthcare Address [address] [place] [address] Care Team Providers Care Production Trainer Name Role Phone Ninfa Escobedo APRN Primary Care Provider [phone]- [phone] Allergies No known active allergies Medications sulfamethoxazole-tr imethoprim (Bactrim DS) 800-160 MG tablet TAKE 1 TABLET BY MOUTH TWICE DAILY FOR 14 DAYS 1 Active polyethylene glycol (Miralax) 17 GM/SCOOP powder MIX 1 CAPFUL IN LIQUID AND DRINK ONCE DAILY 1 Active polyethylene glycol (MiraLax) 17 GM/SCOOP powder 5 Active ondansetron ODT (Zofran-ODT) 4 MG disintegrating tablet DISSOLVE 1 TABLET IN MOUTH EVERY 6 HOURS NEEDED FOR NAUSEA AND VOMITING 1 Active Euthyrox 25 MCG tablet Take 25 mcg by mouth 1 (one) time each day. 1 Active HYDROcodone-acetami nophen (Hycet) 7.5-325 MG/15ML solution TAKE 15 ML BY MOUTH EVERY 6 HOURS FOR 7 DAYS NEEDED FOR POST OP PAIN 1 Active levothyroxine (Synthroid) 100 MCG/5ML solution 7 Active ClearLax 17 GM/SCOOP powder MIX 1 CAPFUL IN LIQUID AND DRINK DAILY DIRECTED 1 Active Family History Medical History Relation Name Comments Hypertension Mother Relation Name Status Comments Mother Social History Tobacco Use Types Packs/Day Years Used Date Smoking Tobacco: Unknown Alcohol Use Standard Drinks/Week Comments No 0 (1 standard drink = 0.6 oz pur e alcohol) Sex and Gender Information Value Date Recorded Sex Assigned at Not on file Legal Sex Male 7:52 PM EDT Gender Identity Not on file Sexual Orientation Not on file Last Filed Vital Signs Vital Sign Reading Time Taken Comments Blood Pressure 114/80 01/03/2021 9:06 AM EDT Pulse 90 01/03/2021 9:06 AM EDT Temperature - - Respiratory Rate - - Oxygen Saturation - - Inhaled Oxygen Concentration - - Weight 61.2 kg (135 lb) 10/03/2021 9:46 AM EDT Height 152.4 cm (5') 10/03/2021 9:46 AM EDT Body Mass Index 26.37 10/03/2021 9:46 AM EDT Plan of Treatment Health Maintenance Due Date Last Done Comments [facility]-Depression Screening 1981 [facility]-HIV Screening 1981 [facility]-Hepatitis C Screening 1981 [facility]-Infant/Child/Adol SDOH Screenings 1981 [facility]-Obesity Intervention 07/01/1987 [facility]-Varicella Vaccines (1 of 2 - 13+ 2-dose series) 1994 HPV Vaccines (1 - Male 3-dose series) 1996 [facility]- SDOH Screenings 07/01/1999 [facility]-Adult SDOH Screenings 07/01/1999 [facility]-Hepatitis B Vaccines (1 of 3 - 19+ 3-dose series) 2000 [id number] Vaccine (2 - [place] risk series) 07/31/2020 07/03/2020 [facility]-DTaP,Tdap,and Td Vaccines (2 - Td or Tdap) 08/06/2020 08/06/2010 [facility]-Influenza Vaccine (Season Ended) 2024 01/28/2022, 01/01/2021, 12/25/2019, Additional history exists [facility]-Zoster Vaccines (1 of 2) 07/01/2031 [facility]-Pneumococcal Vaccine: Pediatrics (0 to 5 Years) and At-Risk Patients (6 to 49 Years) Aged Out 12/04/2016 No longer eligible based on patient's age to complete this topic [facility]-HIB Vaccines Aged Out No longer e ligible based on patient's age to complete this topic [facility]-Hepatitis A Vaccines Aged Out No longer eligible based on patient's age to complete this topic [facility]-IPV Vaccines Aged Out No longer e ligible based on patient's age to complete this topic [facility]-Rotavirus Vaccines Aged Out No lo nger eligible based on patient's age to complete this topic Insurance [place] Care Teams Production Trainer Relationship Specialty Start Date End Date Ninfa Escobedo APRN [address] [place] [address] PCP - General 08/09/20
== END 2024-09-13 23:59 | disposition home or self-care (01) ==
LOC: LAB.DROPOF 16:23
PROVIDERS: PCP Internal Medicine; Visit Provider Internal Medicine
DX: E03.9 Hypothyroidism, unspecified (principal); G40.909 Epilepsy, unspecified, not intractable, without status epilepticus; E78.5 Hyperlipidemia, unspecified; R73.03 Prediabetes
CPT/HCPCS: 80053; 80061; 83036; 84443; 85025

== ENCOUNTER 2025-03-15 11:15 | Outpatient (CLI) | payer MEDICAID, SELFPAY ==
[2025-03-15 15:13] LABS: Albumin Level 4.3 g/dl (3.5-5.0); Albumin/Globulin Ratio 1.4 (1.1-1.8); Anion Gap 12.4 mEq/L (5-15); Blood Urea Nitrogen 14 mg/dl (9-20); Calcium 9.0 mg/dl (8.4-10.2); Carbon Dioxide 28 mmol/L (22.0-30.0); Chloride 103 mmol/L (98-107); Cholesterol 138 mg/dl (140-200); Creatinine,Serum 0.90 mg/dl (0.66-1.25); Estimated Glomerular Filt Rate 92 ml/min (>60); GFR (African American) 111 ML/MIN (>60); Globulin 3.1 g/dL (1.3-3.2); Glucose 74 mg/dl (74-100); Potassium 4.4 mmoL/L (3.5-5.1); Sodium 139 mmol/L (136-145); Total Protein,Serum 7.4 g/dl (6.3-8.2); Triglycerides 147 mg/dl (30-150)
[2025-03-15 15:14] LABS: Alanine Aminotransferase 29 U/L (12-78); Alkaline Phosphatase 82 U/L (38-126); Aspartate Amino Transferase 29 U/L (17-59); Bilirubin,Total 0.7 mg/dl (0.2-1.3); HDL Cholesterol 37 mg/dl (40-60)
[2025-03-15 16:18] LABS: Hemoglobin A1C 5.5 % (4.0-6.0)
--- OUTSIDE RECORDS SUMMARY | 2025-03-16 10:24 | XMS_ITS | Clinical Summary ---
Author Organization Healthcare Address [address] [place] [address] Care Team Providers Care Corporate Compliance Officer Name Role Phone Ninfa Escobedo APRN Primary Care Provider [phone]- [phone] Allergies No known active allergies Medications sulfamethoxazole-tr [...] Date Last Done Comments [facility]-Depression Screening 1981 [facility]-Infant/Child/Adol SDOH Screenings 1981 [facility]-Varicella Vaccines (1 of 2 - 13+ 2-dose series) 1994 [facility]- SDOH Screenings 07/01/1999 [facility]-Adult SDOH Screenings 07/01/1999 [facility]-Hepatitis B Vaccines (1 of 3 - 19+ 3-dose series) 2000 [facility]-DTaP,Tdap,and Td Vaccines (2 - Td or Tdap) 08/06/2020 08/06/2010 [id number] Vaccine (2 - 2024- season) 2024 07/03/2020 [facility]-Influenza Vaccine (#1) 11/27/202401/28, 01/01/2021, 12/25/2019, Additional history exists [facility]-Zoster Vaccines (1 of 2) 07/01/2031 [facility]-Pneumococcal Vaccine: Pediatrics (0 to 5 Years) and At-Risk Patients (6 to 49 Years) Aged Out 12/04/2016 No longer eligible based on patient's age to complete this topic HPV Vaccines (No Doses Required) Completed [facility]-HIB Vaccines Aged Out No longer e [...] complete this topic Insurance [place] Care Teams Corporate Compliance Officer Relationship Specialty Start Date End Date Ninfa Escobedo APRN [address] [facility] [place] [address] PCP - General 08/09/20
--- OUTSIDE RECORDS SUMMARY | 2025-03-16 10:25 | XMS_ITS ---
Author Organization Unknown ENCOUNTERS Encounter Performer Location Date Diagnosis Diagnosis Status Outpatient [facility] Oconnor [address] [place] [address] [id number] [facility] [place] [address] [place] [address] [id number] A Pre Admit [place] [address] [place] [address] [id number] [facility] [place] [address] [place] [address] [id number] [facility] [place] [address] [place] [address] [id number] [facility] Ruthy Ku [address] [place] [address] [id number] [facility] *Note: Encounters from your own facility or health system may be excluded. Allergies, Adverse Reactions, Alerts Allergen Type Severity Identification Date INGREDIENT: NO KNOWN - NO KNOWN DRUG ALLERGY propensity to adverse reactions 0 [id number] NO KNOWN ALLERGIES - NKA propensity to a dverse reactions 2 [id number] Medications Name Date Quantity Days Supplied GPI Number
== END 2025-03-15 23:59 | disposition home or self-care (01) ==
LOC: LAB.DROPOF 03-16 10:22
PROVIDERS: PCP Internal Medicine; Visit Provider Internal Medicine
DX: R73.03 Prediabetes (principal); E78.5 Hyperlipidemia, unspecified; Q90.9 Down syndrome, unspecified
CPT/HCPCS: 80053; 80061; 83036